=== PATIENT | male | born 1960 | race Caucasian/White ===

== ENCOUNTER 2017-11-22 13:04 | Inpatient (IN) | payer SELFPAY ==
--- NOTE | 2017-11-22 14:35 | PDOC ---
Attending Attestation - Resident Resident Name: Nanda Kellyie - ED Attending Attestation I have performed the following: I have examined & evaluated the patient, The case was reviewed & discussed with the resident, I agree w/resident's findings & plan, Exceptions are as noted - HPI HPI: 11/22/17 14:34 57y M hx of gout, ran out of his colchicine presents with 7 days of joint pain. pt notes it started off asR knee pain, then it spread to the L knee, L foot, R pinky, R index finger. pt endorsed feeling fevers. He notes that he last had gouty attack months ago, formerly his sypmtoms improve with colchicine. Pt notes that he was referrred to rheum at [facility] but never followed up yet. pt denies any chest pain, shortness of brath, abdmoinal pain, n/v, dysuria, diarrhea. ran out of his meds 7 days ago and uanble to make an appointment with his doctor. GENERAL: The patient is awake, alert, and fully oriented, Nontoxic - in no acute distress. HEAD: Normocephalic, atraumatic. EYES: extraocular movements intact, sclera anicteric, conjunctiva clear. ENT: Normal voice, Moist mucous membranes. NECK: Normal range of motion, supple LUNGS: Breath sounds equal, clear to auscultation bilaterally. No wheezes, no rhonchi, no rales. HEART: tachycardic, no murmers/rubs/gallops ABDOMEN: Soft, nontender, normoactive bowel sounds. No guarding, no rebound. . No CVA tenderness EXTREMITIES: b/l knee swelling/erythmia, L foot erythema/tenderness to palpation , +mildly tender erythemadous mass, sausage digit on L pinky but able to have limited rom of digit, able to range her knees to approx 45 degrees without signifiicant tendenress NEUROLOGICAL: No facial assymetry, Normal speech, moving all 4 extremities spontaneously PSYCH: Normal mood, normal affect. SKIN: hot to touch exam inconsistent with septic joints ?gout vs rheutmatolic vs viral will ck labs septic orderset obtained anticipate admission for further mangaement - Physicial Exam PE: 11/23/17 14:48 see above - Medical Decision Making 11/22/17 16:27 pot nt noted febrile and tachy leukocyotisis of 19 sepsis orderset obtained will give pt vanc/zosyn due to erythema/swelling of LLE anticipate admissoi nfor further mangement
[2017-11-22] MEDS ORDERED: SODIUM CHLORIDE 1,000 ML IV ONE (14:37)
[2017-11-22] MEDS ORDERED: KETOROLAC TROMETHAMINE 30 MG/1 ML VIAL IVPUSH ONE (14:40)
[2017-11-22] MEDS ORDERED: KETOROLAC TROMETHAMINE 30 MG/1 ML VIAL ONE (14:49)
[2017-11-22 15:12] LABS: BASO % 0.4 % (0-2.0); EOS % 0.2 % (0-4.5); HEMATOCRIT 43.7 % (35.4-49); HEMOGLOBIN 14.4 GM/dL (11.7-16.9); MCH 29.3 pg (25.7-33.7); MCHC 32.9 g/dl (32.0-35.9); MEAN CELL VOLUME 88.9 fl (80-96); MEAN PLT VOLUME 7.6 fl (7.5-11.1); MONO % 7.7 % (3.8-10.2); NEUT % 87.7 % (42.8-82.8); PLATELET COUNT 344 K/MM3 (134-434); RBC 4.92 M/mm3 (4.00-5.60); RDW 15.6 % (11.9-15.9); WHITE BLOOD COUNT 19.3 K/mm3 (4.0-10.0)
[2017-11-22] MEDS ORDERED: ACETAMINOPHEN 1000 MG/100 ML VIAL (NON FORMULARY) IVPB ONE (16:07)
--- NOTE | 2017-11-22 16:13 | PDOC ---
History of Present Illness - General Chief Complaint: Pain, Acute Stated Complaint: GOUT/ BOTH FEET Time Seen by Provider: 11/22/17 13:47 - History of Present Illness Initial Comments: 11/25/17 02:30 57 year old man w/ history of gout who presents with multiple joint pain, swelling and redness for the past 7 days. The patient regularly takes colchicine but ran out 1 week ago. The pain and joints involved include the L knee, L foot, R pinky, R index finger. The patient states that he feels this may be a gout flare, however it feels much worse than his flares in the past. He admits to feeling feverish but denies chest pain, shortness of breath, abdominal pain, N/V, diarrhea or constipation. 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 Past History - Past Medical History Allergies/Adverse Reactions: Allergies Allergy/AdvReac Type Severity Reaction Status Date / Time No Known Allergies Allergy Verified 11/22/17 13:22 Home Medications: Ambulatory Orders Amlodipine Besylate 10 mg PO DAILY #30 tablet 11/24/17 Cane 1 each MC ASDIR #1 each 11/24/17 Colchicine 0.6 tab PO DAILY #30 tablet 11/24/17 Erythromycin 0.5% Eye Ointment [Erythromycin 0.5% Eye Ointment -] 1 applic OS DAILY #1 tube 11/24/17 Metformin HCl [Glucophage] 1,000 mg PO DAILY #30 tablet 11/24/17 Prednisone See Taper PO DAILY #12 tablet 11/24/17 COPD: No Diabetes: Yes HTN: Yes Other medical history: gout - Suicide/Smoking/Psychosocial Hx Smoking History: Never smoked Hx Alcohol Use: No Drug/Substance Use Hx: No Review of Systems - Review of Systems Able to Perform ROS?: Yes Is the patient limited Uzbek proficient: No Constitutional: Yes: Fever HEENTM: No: Blurred Vision, Tinnitus Respiratory: No: Cough, Orthopnea, Shortness of Breath Cardiac (ROS): No: Chest Pain, Palpitations, Chest Tightness ABD/GI: No: Constipated, Diarrhea, Nausea, Vomiting : No: Burning, Dysuria Musculoskeletal: Yes: See HPI, Gout, Joint Pain, Joint Swelling, Joint Stiffness. No: Back Pain, Muscle Pain, Muscle Weakness Integumentary: No: Pruritus Neurological: No: Headache, Numbness, Paresthesia, Tingling *Physical Exam - Vital Signs Last Vital Signs Temp Pulse Resp BP Pulse Ox 97.7 F 132 H 18 116/72 99 11/22/17 13:19 11/22/17 15:22 11/22/17 15:22 11/22/17 13:19 11/22/17 13:19 - Physical Exam Comments: 11/26/17 07:20 GENERAL: Awake, alert, and fully oriented, NAD HEAD: Normocephalic, atraumatic. EYES: extraocular movements intact, sclera anicteric, conjunctiva clear. ENT: Normal voice, Moist mucous membranes. NECK: Normal range of motion, supple LUNGS: Breath sounds equal, clear to auscultation bilaterally. No wheezes, no rhonchi, no rales. HEART: tachycardic, no murmers/rubs/gallops ABDOMEN: Soft, nontender, normoactive bowel sounds. No guarding, no rebound. . No CVA tenderness EXTREMITIES: bilateral knee swellling and erythema, able to range knees approx 45 degrees, L pinky tenderness, swelling, limited ROM, NEUROLOGICAL: No facial asymmetry, Normal speech, moving all 4 extremities spontaneously PSYCH: Normal mood, normal affect. SKIN: hot to touch ED Treatment Course - LABORATORY CBC & Chemistry Diagram: 11/24/17 06:00 11/24/17 06:00 - ADDITIONAL ORDERS Additional order review: Laboratory Results 11/22/17 15:00 Sodium Cancelled Potassium Cancelled Chloride Cancelled Carbon Dioxide Cancelled Anion Gap Cancelled BUN Cancelled Creatinine Cancelled Creat Clearance w eGFR Cancelled Random Glucose Cancelled Uric Acid Cancelled Calcium Cancelled Total Bilirubin Cancelled AST Cancelled ALT Cancelled Alkaline Phosphatase Cancelled Total Protein Cancelled Albumin Cancelled 11/22/17 15:00 RBC 4.92 MCV 88.9 MCHC 32.9 RDW 15.6 MPV 7.6 Neutrophils % 87.7 H Lymphocytes % 4.0 L Monocytes % 7.7 Eosinophils % 0.2 Basophils % 0.4 - RADIOLOGY Radiology Studies Ordered: Category Date Time Status CHEST X-RAY PORTABLE* [RAD] Stat Radiology 11/22/17 16:06 Ordered - Medications Given in the ED: ED Medications Discontinued Medications Generic Name Dose Route Start Last Admin Trade Name Freq PRN Reason Stop Dose Admin Sodium Chloride 1,000 mls @ 1,000 mls/hr 11/22/17 14:37 11/22/17 15:07 Normal Saline - IV 11/22/17 15:36 1,000 mls/hr .Q1H ONE Administration Ketorolac Tromethamine 30 mg 11/22/17 14:40 11/22/17 15:07 Toradol Injection - IVPUSH 11/22/17 14:41 30 mg ONCE ONE Administration Medical Decision Making - Medical Decision Making 57 year old man w/ history of gout who presents with multiple joint pain, swelling and redness for the past 7 days after stopping colchicine for 1 week. The patient's exam and history or concerning for gout flare vs viral illness vs rheumatologic etiology vs septic joint. Unlikely to be septic joint as multiple joints are involved. We will evaluate with rheum labs, septic order set and anticipate admission for further workup and management. 11/22/17 16:12 Rectal Temp = 102F. Sepsis workup started Patient admitted to medicine for further workup. *DC/Admit/Observation/Transfer Diagnosis at time of Disposition: Leukocytosis, Elevated troponin, Gout, joint - Discharge Dispostion Disposition: HOME Condition at time of disposition: Improved - Prescriptions - Referrals - Patient Instructions - Post Discharge Activity
[2017-11-22] MEDS ORDERED: VANCOMYCIN 1,000 MG in DEXTROSE 5%-WATER - 250 ML IVPB ONE (16:24)
[2017-11-22] MEDS ORDERED: PIPERACILLIN/TAZOB 4.5 GM 4.5 GM in DEXTROSE 5%-WATER 100 ML IVPB ONE (16:24)
[2017-11-22 16:34] LABS: ALBUMIN 2.7 g/dl (3.4-5.0); ALK PHOS 105 U/L (45-117); ANION GAP 10 (8-16); BLOOD UREA NITROGEN 24 mg/dL (7-18); CALCIUM 8.2 mg/dL (8.5-10.1); CHLORIDE 103 mmol/L (98-107); CO2 25 mmol/L (21-32); CREATININE 1.3 mg/dL (0.7-1.3); GLUCOSE,RANDOM 109 mg/dL (74-106); POTASSIUM 4.1 mmol/L (3.5-5.1); SGOT/AST 13 U/L (15-37); SGPT/ALT 30 U/L (12-78); SODIUM 138 mmol/L (136-145); TOT PROT 6.2 g/dl (6.4-8.2)
[2017-11-22] MEDS ORDERED: PIPERACILLIN/TAZOB 4.5 GM 4.5 GM/100 ML BAG IVPB ONE (16:47)
[2017-11-22] MEDS ORDERED: ACETAMINOPHEN INJECTION 100 ML IVPB ONE (16:47)
[2017-11-22] MEDS ORDERED: VANCOMYCIN 1 GRAM (PRE-DOCKED) 1,000 MG/250 ML BAG IVPB ONE (16:47)
[2017-11-22 17:39] LABS: INR 1.29 (0.82-1.09); PROTHROMBIN TIME (PATIENT) 14.6 SEC (9.7-13.0)
[2017-11-22] MEDS ORDERED: ASPIRIN 81 MG CHEWABLE TABLETS PO ONE (18:06)
[2017-11-22 18:07] LABS: VENOUS PC02 35.1 mmHg (38-52); VENOUS PH 7.44 (7.32-7.42); VENOUS PO2 73.2 mmHg (28-48)
[2017-11-22] MEDS ORDERED: SODIUM CHLORIDE 1,000 ML IV SCH (18:15)
[2017-11-22 18:17] LABS: URINE APPEARANCE CLEAR; URINE BILIRUBIN NEGATIVE (<2.0 mg/dL); URINE COLOR AMBER; URINE GLUCOSE (UA) NEGATIVE (NEGATIVE); URINE KETONE TRACE (NEGATIVE); URINE LEUK ESTERASE NEGATIVE (NEGATIVE); URINE NITRITE NEGATIVE (NEGATIVE); URINE UROBILINOGEN 4.0 E.U/dl mg/dL (0.2-1.0)
[2017-11-22 18:28] LABS: URINE PROTEIN 1+ (NEGATIVE)
[2017-11-22] MEDS ORDERED: ASPIRIN 81 MG CHEWABLE TABLETS ONE (18:56)
--- NOTE | 2017-11-22 19:04 | PDOC ---
*Physical Exam - Vital Signs Last Vital Signs Temp Pulse Resp BP Pulse Ox 102.2 F H 132 H 18 116/72 99 11/22/17 15:55 11/22/17 15:22 11/22/17 15:22 11/22/17 13:19 11/22/17 13:19 ED Treatment Course - LABORATORY CBC & Chemistry Diagram: 11/22/17 15:00 11/22/17 15:49 - ADDITIONAL ORDERS Additional order review: Laboratory Results 11/22/17 11/22/17 11/22/17 17:14 17:14 17:11 PT with INR 14.60 H INR 1.29 H VBG pH POC VBG pCO2 POC VBG pO2 Mixed VBG HCO3 Sodium Potassium Chloride Carbon Dioxide Anion Gap BUN Creatinine Creat Clearance w eGFR Random Glucose Lactic Acid 1.3 Uric Acid Calcium Total Bilirubin AST ALT Alkaline Phosphatase Troponin I 0.09 H Total Protein Albumin Urine Color Urine Appearance Urine pH Ur Specific [place] Urine Protein Urine Glucose (UA) Urine Ketones Urine Blood Urine Nitrite Urine Bilirubin Urine Urobilinogen Ur Leukocyte Esterase 11/22/17 11/22/17 11/22/17 17:11 17:11 15:58 PT with INR INR VBG pH 7.44 H POC VBG pCO2 35.1 L POC VBG pO2 73.2 H Mixed VBG HCO3 23.2 Sodium Potassium Chloride Carbon Dioxide Anion Gap BUN Creatinine Creat Clearance w eGFR Random Glucose Lactic Acid Uric Acid 9.6 H Calcium Total Bilirubin AST ALT Alkaline Phosphatase Troponin I Total Protein Albumin Urine Color Carol Urine Appearance Clear Urine pH 5.0 Ur Specific [place] 1.020 Urine Protein 1+ H Urine Glucose (UA) Negative Urine Ketones Trace H Urine Blood 1+ H Urine Nitrite Negative Urine Bilirubin Negative Urine Urobilinogen 4.0 e.u/dl Ur Leukocyte Esterase Negative 11/22/17 11/22/17 15:49 15:00 PT with INR INR VBG pH POC VBG pCO2 POC VBG pO2 Mixed VBG HCO3 Sodium 138 Cancelled Potassium 4.1 Cancelled Chloride 103 Cancelled Carbon Dioxide 25 Cancelled Anion Gap 10 Cancelled BUN 24 H Cancelled Creatinine 1.3 Cancelled Creat Clearance w eGFR 57.31 Cancelled Random Glucose 109 H Cancelled Lactic Acid Uric Acid Cancelled Calcium 8.2 L Cancelled Total Bilirubin 1.0 Cancelled AST 13 L Cancelled ALT 30 Cancelled Alkaline Phosphatase 105 Cancelled Troponin I Total Protein 6.2 L Cancelled Albumin 2.7 L Cancelled Urine Color Urine Appearance Urine pH Ur Specific [place] Urine Protein Urine Glucose (UA) Urine Ketones Urine Blood Urine Nitrite Urine Bilirubin Urine Urobilinogen Ur Leukocyte Esterase 11/22/17 15:00 RBC 4.92 MCV 88.9 MCHC 32.9 RDW 15.6 MPV 7.6 Neutrophils % 87.7 H Lymphocytes % 4.0 L Monocytes % 7.7 Eosinophils % 0.2 Basophils % 0.4 - Medications Given in the ED: ED Medications Discontinued Medications Generic Name Dose Route Start Last Admin Trade Name Rosy PRN Reason Stop Dose Admin Acetaminophen 1,000 mg 11/22/17 16:07 11/22/17 17:00 Ofirmev Injection - IVPB 11/22/17 16:08 1,000 mg ONCE ONE Administration Sodium Chloride 1,000 mls @ 1,000 mls/hr 11/22/17 14:37 11/22/17 15:07 Normal Saline - IV 11/22/17 15:36 1,000 mls/hr .Q1H ONE Administration Vancomycin HCl 1,000 mg/ 250 mls @ 166.667 mls/hr 11/22/17 16:24 11/22/17 18: 00 Dextrose IVPB 11/22/17 17:53 166.667 mls/hr ONCE ONE Administration Protocol Piperacillin Sod/Tazobactam 100 mls @ 200 mls/hr 11/22/17 16:24 11/22/17 17: 20 Sod 4.5 gm/ Dextrose IVPB 11/22/17 16:53 200 mls/hr ONCE ONE Administration Protocol Ketorolac Tromethamine 30 mg 11/22/17 14:40 11/22/17 15:07 Toradol Injection - IVPUSH 11/22/17 14:41 30 mg ONCE ONE Administration *DC/Admit/Observation/Transfer Diagnosis at time of Disposition: Leukocytosis, Elevated troponin, Gout, joint - Discharge Dispostion Decision to Admit order: Yes - Referrals Referrals: Avinash Calhoun [Primary Care Provider] - - Patient Instructions - Post Discharge Activity
[2017-11-22 19:09] LABS: URINE MUCUS RARE
--- NOTE | 2017-11-22 20:16 | PN ---
Teaching Attending Note Name of Resident: Narendra Gonzalez ATTENDING PHYSICIAN STATEMENT I saw and evaluated the patient. I reviewed the resident's note and discussed the case with the resident. I agree with the resident's findings and plan as documented. SUBJECTIVE: 57 y/o M presenting for joint pain in feet, knees, elbows and hands , pmh significant for gout. PMH HTN, DM2 and hypercholesterol. Denies any fever , chills or recent sick contact OBJECTIVE: Gen: Mild distress, A&Ox3 HEENT: NC, PERRLA, EOMI, injected conjunctiva with purulent secretions, MMM CVS: Tachycardia LUNG: CTA ABD: Soft, NT, BS+ no guarding Ext: elbow L>R tophi, b/l hand swelling with erythema and tophi and b/l knee swelling right >left and left foot swollen and erythematous. right neuro: CN2-12 intact. CBCD WBC 19.3 K/mm3 (4.0-10.0) H 11/22/17 15:00 RBC 4.92 M/mm3 (4.00-5.60) 11/22/17 15:00 Hgb 14.4 GM/dL (11.7-16.9) 11/22/17 15:00 Hct 43.7 % (35.4-49) 11/22/17 15:00 MCV 88.9 fl (80-96) 11/22/17 15:00 MCHC 32.9 g/dl (32.0-35.9) 11/22/17 15:00 RDW 15.6 % (11.9-15.9) 11/22/17 15:00 Plt Count 344 K/MM3 (134-434) 11/22/17 15:00 MPV 7.6 fl (7.5-11.1) 11/22/17 15:00 CMP Sodium 138 mmol/L (136-145) 11/22/17 15:49 Potassium 4.1 mmol/L (3.5-5.1) 11/22/17 15:49 Chloride 103 mmol/L (98-107) 11/22/17 15:49 Carbon Dioxide 25 mmol/L (21-32) 11/22/17 15:49 Anion Gap 10 (8-16) 11/22/17 15:49 BUN 24 mg/dL (7-18) H 11/22/17 15:49 Creatinine 1.3 mg/dL (0.7-1.3) 11/22/17 15:49 Creat Clearance w eGFR 57.31 (>60) 11/22/17 15:49 Random Glucose 109 mg/dL (74-106) H 11/22/17 15:49 Calcium 8.2 mg/dL (8.5-10.1) L 11/22/17 15:49 Total Bilirubin 1.0 mg/dL (0.2-1.0) 11/22/17 15:49 AST 13 U/L (15-37) L 11/22/17 15:49 ALT 30 U/L (12-78) 11/22/17 15:49 Alkaline Phosphatase 105 U/L (45-117) 11/22/17 15:49 Total Protein 6.2 g/dl (6.4-8.2) L 11/22/17 15:49 Albumin 2.7 g/dl (3.4-5.0) L 11/22/17 15:49 CARDIAC ENZYMES Troponin I 0.09 ng/ml (0.00-0.05) H 11/22/17 17:14 ASSESSMENT AND PLAN: SIRS criteria met, sepsis etiology unknown r/o septic joint vs bacterial conjunctivitis, gout flare. IVF Vanc and Zosyn Follow bld cx, G&C repeat CBC and BMP in AM ortho consult for joint aspiration Conjunctivitis- bacterial vs viral Erythromycin Gout flare uric acid level Naproxen continue colchine xray b/l knees DVT prophylaxis
[2017-11-22 20:45] LABS: ACTIVATED PTT 18.6 SECONDS (25.2-36.5)
[2017-11-22] MEDS: SODIUM CHLORIDE 1,000 ML IV SCH (23:22)
[2017-11-22] MEDS: HEPARIN NA (PORCINE) 5,000 UNITS/ML 1ML VIAL SQ SCH (23:45)
[2017-11-23] MEDS ORDERED: HEPARIN NA (PORCINE) 5,000 UNITS/ML 1ML VIAL ONE (00:13)
[2017-11-23] MEDS ORDERED: ACETAMINOPHEN 325 MG TABLET (FP) PO PRN (00:57)
[2017-11-23] MEDS ORDERED: COLCHICINE 0.6 MG TABLET (FP) PO ONE (01:00)
[2017-11-23] MEDS ORDERED: NAPROXEN 500 MG TABLET (FP) PO ONE (01:01)
[2017-11-23 01:12] VITALS: BMI 38.0
[2017-11-23] MEDS: ACETAMINOPHEN 325 MG TABLET (FP) PO PRN ×3 (01:14→22:07)
[2017-11-23] MEDS: ERYTHROMYCIN 0.5% OPHTHALMIC OINTMENT 3.5 GM TUBE OU SCH ×5 (01:17→22:07)
--- NOTE | 2017-11-23 01:48 | HP ---
CHIEF COMPLAINT: joint pains PCP: HISTORY OF PRESENT ILLNESS: 57 y/o male with PMH gout, HTN, HLD, DM, presents for pain in his b/l feet, b/l knees, and right pinky finger. States pain began one week ago when he ran out of colchicine. He was diagnosed with gout 1-1.5 months ago incidentally at his PCP office. since diagnosis he admits compliance with diet low in meat and alcohol. Today admits sharp pain, erythema and swelling of his feet b/l which makes it difficult for him to bear weight, difficulty flexing his right knee which impairs his walking, and pain bending his pinky fingers b/l radiating throughout his hands. Admits subjective fevers, chills, and irritated right eye. Denies chest pain, palpitations, shortness of breath, nausea, vomiting, diarrhea, changes in vision, blurry vision. Home medications: Indomethicin 50mg PO QD, Colchicine 0.6mg PO QD ER course was notable for: (1) Ofirimev, vancomycin, zosyn, toradol, aspirin, IVNS, (2) blood cx, urine cx (3) Recent Travel: PAST MEDICAL HISTORY: gout, HTN, HLD, DM PAST SURGICAL HISTORY: left knee meniscal repair 10 years ago, endoscopy 15 years ago, Social History: Smoking: denies Alcohol: used to drink 1 bottle of tequilla at a [employer] party once a month, but had last drink 6 years ago Drugs: denies Family History: Allergies No Known Allergies Allergy (Verified 11/22/17 13:22) HOME MEDICATIONS: Home Medications Medication Instructions Recorded Amlodipine Besylate 10 mg PO DAILY 11/22/17 Aspirin [Aspirin EC] 81 mg PO DAILY 11/22/17 Metformin HCl [Glucophage] 1,000 mg PO DAILY 11/22/17 Metoprolol Tartrate 50 mg PO BID 11/22/17 REVIEW OF SYSTEMS As per HPI PHYSICAL EXAMINATION Vital Signs - 24 hr 11/22/17 11/22/17 11/22/17 13:19 15:22 15:55 Temperature 97.7 F 102.2 F H Pulse Rate 134 H Pulse Rate [ 132 H Left Radial] Respiratory 16 18 Rate Blood Pressure 116/72 Blood Pressure [Left Arm] O2 Sat by Pulse 99 Oximetry (%) 11/22/17 11/22/17 11/22/17 17:38 19:02 23:32 Temperature 99.8 F H 99.5 F Pulse Rate Pulse Rate [ 111 H 105 H 110 H Left Radial] Respiratory 17 15 22 Rate Blood Pressure Blood Pressure 108/71 124/78 138/90 [Left Arm] O2 Sat by Pulse 98 95 96 Oximetry (%) 11/23/17 00:30 Temperature 99.9 F H Pulse Rate 128 H Pulse Rate [ Left Radial] Respiratory 20 Rate Blood Pressure 139/76 Blood Pressure [Left Arm] O2 Sat by Pulse Oximetry (%) GENERAL: Awake, alert, and fully oriented, in no mild distress. HEAD: Normal with no signs of trauma. EYES: Right eye conjunctival injection, with mucoid discharge. Pupils equal, round and reactive to light, extraocular movements intact. EARS, NOSE, THROAT: Oropharynx clear without exudates. Moist mucous membranes. NECK: Normal range of motion, supple without lymphadenopathy, JVD, or masses. LUNGS: Breath sounds equal, clear to auscultation bilaterally. No wheezes, and no crackles. No accessory muscle use. HEART: Regular rate and rhythm, normal S1 and S2 without murmur, rub or gallop. ABDOMEN: Soft, nontender, not distended, normoactive bowel sounds, no guarding, no rebound. MUSCULOSKELETAL: Difficulty flexing B/L pinky fingers. UPPER EXTREMITIES: 2+ radial pulses, warm, well-perfused. Tophus of left elbow, and tophaceous swelling of right pinky finger. LOWER EXTREMITIES: 2+ DP pulses, warm, b/l feet edematous and erythematous left > right. Right knee swollen and erythematous > left knee. Difficulty flexing left knee past 30 degrees. NEUROLOGICAL: Cranial nerves II-XII intact. Normal speech. PSYCHIATRIC: Cooperative. Appropriate mood and affect. Laboratory Results - last 24 hr 11/22/17 11/22/17 11/22/17 15:00 15:00 15:30 WBC 19.3 H RBC 4.92 Hgb 14.4 Hct 43.7 MCV 88.9 MCH 29.3 MCHC 32.9 RDW 15.6 Plt Count 344 MPV 7.6 Absolute Neuts (auto) 17.0 Neutrophils % 87.7 H Lymphocytes % 4.0 L Monocytes % 7.7 Eosinophils % 0.2 Basophils % 0.4 Nucleated RBC % 0 ESR 25 H PT with INR INR PTT (Actin FS) VBG pH POC VBG pCO2 POC VBG pO2 Mixed VBG HCO3 Sodium Cancelled Potassium Cancelled Chloride Cancelled Carbon Dioxide Cancelled Anion Gap Cancelled BUN Cancelled Creatinine Cancelled Creat Clearance w eGFR Cancelled POC Glucometer Random Glucose Cancelled Lactic Acid Uric Acid Cancelled Calcium Cancelled Total Bilirubin Cancelled AST Cancelled ALT Cancelled Alkaline Phosphatase Cancelled Troponin I C-Reactive Protein Total Protein Cancelled Albumin Cancelled Urine Color Urine Appearance Urine pH Ur Specific [place] Urine Protein Urine Glucose (UA) Urine Ketones Urine Blood Urine Nitrite Urine Bilirubin Urine Urobilinogen Ur Leukocyte Esterase Urine WBC (Auto) Urine RBC (Auto) Urine Mucus 11/22/17 11/22/17 11/22/17 15:49 15:58 17:11 WBC RBC Hgb Hct MCV MCH MCHC RDW Plt Count MPV Absolute Neuts (auto) Neutrophils % Lymphocytes % Monocytes % Eosinophils % Basophils % Nucleated RBC % ESR PT with INR INR PTT (Actin FS) VBG pH POC VBG pCO2 POC VBG pO2 Mixed VBG HCO3 Sodium 138 Potassium 4.1 Chloride 103 Carbon Dioxide 25 Anion Gap 10 BUN 24 H Creatinine 1.3 Creat Clearance w eGFR 57.31 POC Glucometer Random Glucose 109 H Lactic Acid Uric Acid 9.6 H Calcium 8.2 L Total Bilirubin 1.0 AST 13 L ALT 30 Alkaline Phosphatase 105 Troponin I C-Reactive Protein Total Protein 6.2 L Albumin 2.7 L Urine Color Carol Urine Appearance Clear Urine pH 5.0 Ur Specific [place] 1.020 Urine Protein 1+ H Urine Glucose (UA) Negative Urine Ketones Trace H Urine Blood 1+ H Urine Nitrite Negative Urine Bilirubin Negative Urine Urobilinogen 4.0 e.u/dl Ur Leukocyte Esterase Negative Urine WBC (Auto) 2 Urine RBC (Auto) 3 Urine Mucus Rare 11/22/17 11/22/17 11/22/17 17:11 17:11 17:14 WBC RBC Hgb Hct MCV MCH MCHC RDW Plt Count MPV Absolute Neuts (auto) Neutrophils % Lymphocytes % Monocytes % Eosinophils % Basophils % Nucleated RBC % ESR PT with INR 14.60 H INR 1.29 H PTT (Actin FS) 18.6 L* VBG pH 7.44 H POC VBG pCO2 35.1 L POC VBG pO2 73.2 H Mixed VBG HCO3 23.2 Sodium Potassium Chloride Carbon Dioxide Anion Gap BUN Creatinine Creat Clearance w eGFR POC Glucometer Random Glucose Lactic Acid 1.3 Uric Acid Calcium Total Bilirubin AST ALT Alkaline Phosphatase Troponin I C-Reactive Protein Total Protein Albumin Urine Color Urine Appearance Urine pH Ur Specific [place] Urine Protein Urine Glucose (UA) Urine Ketones Urine Blood Urine Nitrite Urine Bilirubin Urine Urobilinogen Ur Leukocyte Esterase Urine WBC (Auto) Urine RBC (Auto) Urine Mucus 11/22/17 11/22/17 11/22/17 17:14 19:51 19:51 WBC RBC Hgb Hct MCV MCH MCHC RDW Plt Count MPV Absolute Neuts (auto) Neutrophils % Lymphocytes % Monocytes % Eosinophils % Basophils % Nucleated RBC % ESR PT with INR INR PTT (Actin FS) VBG pH POC VBG pCO2 POC VBG pO2 Mixed VBG HCO3 Sodium Potassium Chloride Carbon Dioxide Anion Gap BUN Creatinine Creat Clearance w eGFR POC Glucometer Random Glucose Lactic Acid Uric Acid Calcium Total Bilirubin AST ALT Alkaline Phosphatase Troponin I 0.09 H 0.09 H C-Reactive Protein 38.2 H Total Protein Albumin Urine Color Urine Appearance Urine pH Ur Specific [place] Urine Protein Urine Glucose (UA) Urine Ketones Urine Blood Urine Nitrite Urine Bilirubin Urine Urobilinogen Ur Leukocyte Esterase Urine WBC (Auto) Urine RBC (Auto) Urine Mucus 11/23/17 11/23/17 00:15 00:50 WBC RBC Hgb Hct MCV MCH MCHC RDW Plt Count MPV Absolute Neuts (auto) Neutrophils % Lymphocytes % Monocytes % Eosinophils % Basophils % Nucleated RBC % ESR PT with INR INR PTT (Actin FS) VBG pH POC VBG pCO2 POC VBG pO2 Mixed VBG HCO3 Sodium Potassium Chloride Carbon Dioxide Anion Gap BUN Creatinine Creat Clearance w eGFR POC Glucometer 98 Random Glucose Lactic Acid Uric Acid Calcium Total Bilirubin AST ALT Alkaline Phosphatase Troponin I 0.11 H C-Reactive Protein Total Protein Albumin Urine Color Urine Appearance Urine pH Ur Specific [place] Urine Protein Urine Glucose (UA) Urine Ketones Urine Blood Urine Nitrite Urine Bilirubin Urine Urobilinogen Ur Leukocyte Esterase Urine WBC (Auto) Urine RBC (Auto) Urine Mucus ASSESSMENT/PLAN: 57 y/o male with PMH gout, HTN, HLD, DM, presents for pain in his b/l feet, b/l knees, and right pinky finger. -SIRS secondary to unclear cause of infection -WBC 19.3, Temp 102, HR 105, Respirations 15 -CXR showed no infiltrates -will F/U blood, urine cultures -Vancomycin, Zosyn given in ED -IV NS 125mml/ hr Gout flare -Reinstate Colchicine -Tylenol started d/t elevated Cr -Consider reinstating indomethicin -f/u gonorrhea, chlamydia cultures for possible infectious source DM -Hold oral medication -Insulin sliding scale -BGM HTN -Reinstate Amlodipine, Metoprolol FEN -IV NS 125 ml/ hr -no electrolyte abnormalities at this time -Diabetic diet Prophylaxis -Heparin 5000u subq tid Advance directives: Full code Disposition: admit to medical surgical floor Case discussed with publication distributor attending. Visit type - Emergency Visit Emergency Visit: Yes ED Registration Date: 11/22/17 Care time: The patient presented to the Emergency Department on the above date and was hospitalized for further evaluation of their emergent condition. - New Patient This patient is new to me today: Yes Date on this admission: 11/23/17 - Critical Care Critical Care patient: No Hospitalist Screening - Colonoscopy Questionnaire Colonoscopy Questionnaire: Colonoscopy Questionnaire - Patient: 50 - 75 years old and never had a screening colonoscopy: Unknown History of colon or rectal polyps, or CA: Unknown History of IBD, Crohn's disease or UC: Unknown History of abdominal radiation therapy as a child: Unknown - Relative: 1 with colon or rectal CA, or polyps at age 60 or younger: Unknown Colon or rectal CA diagnosed at age 45 or younger: Unknown Multiple relatives with colon or rectal CA: Unknown - Outcome: Screening Result: Negative Screen
[2017-11-23] MEDS ORDERED: MORPHINE SULFATE 2 MG/ML VIAL IM ONE (02:14)
[2017-11-23 04:35] LABS: BASO % 0.2 % (0-2.0); EOS % 1.2 % (0-4.5); HEMATOCRIT 37.1 % (35.4-49); HEMOGLOBIN 12.3 GM/dL (11.7-16.9); LYMPH % 4.3 % (8-40); MCH 29.3 pg (25.7-33.7); MEAN PLT VOLUME 7.2 fl (7.5-11.1); MONO % 8.7 % (3.8-10.2); NEUT % 85.6 % (42.8-82.8); PLATELET COUNT 262 K/MM3 (134-434); RBC 4.18 M/mm3 (4.00-5.60); RDW 14.9 % (11.9-15.9); WHITE BLOOD COUNT 14.6 K/mm3 (4.0-10.0)
[2017-11-23 05:03] LABS: ALBUMIN 2.5 g/dl (3.4-5.0); ANION GAP 9 (8-16); BLOOD UREA NITROGEN 27 mg/dL (7-18); CHLORIDE 102 mmol/L (98-107); CO2 27 mmol/L (21-32); CREATININE 1.4 mg/dL (0.7-1.3); GLUCOSE,RANDOM 103 mg/dL (74-106); POTASSIUM 3.9 mmol/L (3.5-5.1); SGOT/AST 21 U/L (15-37); SGPT/ALT 30 U/L (12-78); SODIUM 138 mmol/L (136-145)
[2017-11-23 05:05] LABS: ALK PHOS 101 U/L (45-117); BILIRUBIN,TOTAL 0.8 mg/dL (0.2-1.0)
[2017-11-23] MEDS: HEPARIN NA (PORCINE) 5,000 UNITS/ML 1ML VIAL SQ SCH ×3 (05:38→22:07)
[2017-11-23] MEDS: INSULIN SLIDING SCALE (NOVOLOG) 1 VIAL SQ SCH ×4 (06:05→22:13)
[2017-11-23 06:54] LABS: URIC ACID 9.2 mg/dL (2.6-7.2)
[2017-11-23] MEDS ORDERED: morphine CARPU-JECT 2 MG/1 ML DISP.SYRIN IVPUSH ONE (08:09)
--- NOTE | 2017-11-23 08:11 | PN ---
Physical Exam: SUBJECTIVE: Patient is a 57 y/o male with a past medical history of gout, HTN, HLD, DM who is admitted for gout. Patient reports he still has pain in his affected joints, the worst one is his right knee. His last episode was 3 months ago and hasn't taken his medication in two weeks. He denies eating red meat or drinking alcohol. OBJECTIVE: Vital Signs Period Temp Pulse Resp BP Sys/Gomez Pulse Ox Last 24 Hr 97.7 F-102.2 F 101-134 15-22 108-139/71-90 95-99 GENERAL: The patient is awake, alert, and fully oriented, in no acute distress. EYES: PERRL, extraocular movements intact, L eye sclera injected LUNGS: Breath sounds equal, clear to auscultation bilaterally HEART: Regular rate and rhythm, ABDOMEN: Soft, nontender, nondistended, EXTREMITIES: R hand pinky and first finger, Left elbow, right knee, bilateral feet, tender to palpation, swollen, and erythematous, no pitting edema, DP 2+, ROM intact PSYCH: Normal mood, normal affect. Laboratory Results - last 24 hr 11/22/17 11/22/17 11/22/17 15:00 15:00 15:30 WBC 19.3 H RBC 4.92 Hgb 14.4 Hct 43.7 MCV 88.9 MCH 29.3 MCHC 32.9 RDW 15.6 Plt Count 344 MPV 7.6 Absolute Neuts (auto) 17.0 Neutrophils % 87.7 H Lymphocytes % 4.0 L Monocytes % 7.7 Eosinophils % 0.2 Basophils % 0.4 Nucleated RBC % 0 ESR 25 H PT with INR INR PTT (Actin FS) VBG pH POC VBG pCO2 POC VBG pO2 Mixed VBG HCO3 Sodium Cancelled Potassium Cancelled Chloride Cancelled Carbon Dioxide Cancelled Anion Gap Cancelled BUN Cancelled Creatinine Cancelled Creat Clearance w eGFR Cancelled POC Glucometer Random Glucose Cancelled Lactic Acid Uric Acid Cancelled Calcium Cancelled Total Bilirubin Cancelled AST Cancelled ALT Cancelled Alkaline Phosphatase Cancelled Troponin I C-Reactive Protein Total Protein Cancelled Albumin Cancelled Urine Color Urine Appearance Urine pH Ur Specific [place] Urine Protein Urine Glucose (UA) Urine Ketones Urine Blood Urine Nitrite Urine Bilirubin Urine Urobilinogen Ur Leukocyte Esterase Urine WBC (Auto) Urine RBC (Auto) Urine Mucus 07/11/22/17 11/22/17 15:49 15:58 17:11 WBC RBC Hgb Hct MCV MCH MCHC RDW Plt Count MPV Absolute Neuts (auto) Neutrophils % Lymphocytes % Monocytes % Eosinophils % Basophils % Nucleated RBC % ESR PT with INR INR PTT (Actin FS) VBG pH POC VBG pCO2 POC VBG pO2 Mixed VBG HCO3 Sodium 138 Potassium 4.1 Chloride 103 Carbon Dioxide 25 Anion Gap 10 BUN 24 H Creatinine 1.3 Creat Clearance w eGFR 57.31 POC Glucometer Random Glucose 109 H Lactic Acid Uric Acid 9.6 H Calcium 8.2 L Total Bilirubin 1.0 AST 13 L ALT 30 Alkaline Phosphatase 105 Troponin I C-Reactive Protein Total Protein 6.2 L Albumin 2.7 L Urine Color Carol Urine Appearance Clear Urine pH 5.0 Ur Specific [place] 1.020 Urine Protein 1+ H Urine Glucose (UA) Negative Urine Ketones Trace H Urine Blood 1+ H Urine Nitrite Negative Urine Bilirubin Negative Urine Urobilinogen 4.0 e.u/dl Ur Leukocyte Esterase Negative Urine WBC (Auto) 2 Urine RBC (Auto) 3 Urine Mucus Rare 11/22/17 11/22/17 11/22/17 17:11 17:11 17:14 WBC RBC Hgb Hct MCV MCH MCHC RDW Plt Count MPV Absolute Neuts (auto) Neutrophils % Lymphocytes % Monocytes % Eosinophils % Basophils % Nucleated RBC % ESR PT with INR 14.60 H INR 1.29 H PTT (Actin FS) 18.6 L* VBG pH 7.44 H POC VBG pCO2 35.1 L POC VBG pO2 73.2 H Mixed VBG HCO3 23.2 Sodium Potassium Chloride Carbon Dioxide Anion Gap BUN Creatinine Creat Clearance w eGFR POC Glucometer Random Glucose Lactic Acid 1.3 Uric Acid Calcium Total Bilirubin AST ALT Alkaline Phosphatase Troponin I C-Reactive Protein Total Protein Albumin Urine Color Urine Appearance Urine pH Ur Specific [place] Urine Protein Urine Glucose (UA) Urine Ketones Urine Blood Urine Nitrite Urine Bilirubin Urine Urobilinogen Ur Leukocyte Esterase Urine WBC (Auto) Urine RBC (Auto) Urine Mucus 11/22/17 11/22/17 11/22/17 17:14 19:51 19:51 WBC RBC Hgb Hct MCV MCH MCHC RDW Plt Count MPV Absolute Neuts (auto) Neutrophils % Lymphocytes % Monocytes % Eosinophils % Basophils % Nucleated RBC % ESR PT with INR INR PTT (Actin FS) VBG pH POC VBG pCO2 POC VBG pO2 Mixed VBG HCO3 Sodium Potassium Chloride Carbon Dioxide Anion Gap BUN Creatinine Creat Clearance w eGFR POC Glucometer Random Glucose Lactic Acid Uric Acid Calcium Total Bilirubin AST ALT Alkaline Phosphatase Troponin I 0.09 H 0.09 H C-Reactive Protein 38.2 H Total Protein Albumin Urine Color Urine Appearance Urine pH Ur Specific [place] Urine Protein Urine Glucose (UA) Urine Ketones Urine Blood Urine Nitrite Urine Bilirubin Urine Urobilinogen Ur Leukocyte Esterase Urine WBC (Auto) Urine RBC (Auto) Urine Mucus 11/23/17 11/23/17 11/23/17 00:15 00:50 04:10 WBC 14.6 H RBC 4.18 Hgb 12.3 Hct 37.1 D MCV 89.0 MCH 29.3 MCHC 33.0 RDW 14.9 Plt Count 262 D MPV 7.2 L Absolute Neuts (auto) 12.5 Neutrophils % 85.6 H Lymphocytes % 4.3 L Monocytes % 8.7 Eosinophils % 1.2 D Basophils % 0.2 Nucleated RBC % 0 ESR PT with INR INR PTT (Actin FS) VBG pH POC VBG pCO2 POC VBG pO2 Mixed VBG HCO3 Sodium Potassium Chloride Carbon Dioxide Anion Gap BUN Creatinine Creat Clearance w eGFR POC Glucometer 98 Random Glucose Lactic Acid Uric Acid Calcium Total Bilirubin AST ALT Alkaline Phosphatase Troponin I 0.11 H C-Reactive Protein Total Protein Albumin Urine Color Urine Appearance Urine pH Ur Specific [place] Urine Protein Urine Glucose (UA) Urine Ketones Urine Blood Urine Nitrite Urine Bilirubin Urine Urobilinogen Ur Leukocyte Esterase Urine WBC (Auto) Urine RBC (Auto) Urine Mucus 11/23/17 11/23/17 11/23/17 04:10 05:36 05:45 WBC RBC Hgb Hct MCV MCH MCHC RDW Plt Count MPV Absolute Neuts (auto) Neutrophils % Lymphocytes % Monocytes % Eosinophils % Basophils % Nucleated RBC % ESR PT with INR INR PTT (Actin FS) VBG pH POC VBG pCO2 POC VBG pO2 Mixed VBG HCO3 Sodium 138 Potassium 3.9 Chloride 102 Carbon Dioxide 27 Anion Gap 9 BUN 27 H Creatinine 1.4 H Creat Clearance w eGFR 52.62 POC Glucometer 94 Random Glucose 103 Lactic Acid Uric Acid 9.2 H Calcium 8.0 L Total Bilirubin 0.8 AST 21 D ALT 30 Alkaline Phosphatase 101 Troponin I 0.12 H 0.11 H C-Reactive Protein Total Protein 6.0 L Albumin 2.5 L Urine Color Urine Appearance Urine pH Ur Specific [place] Urine Protein Urine Glucose (UA) Urine Ketones Urine Blood Urine Nitrite Urine Bilirubin Urine Urobilinogen Ur Leukocyte Esterase Urine WBC (Auto) Urine RBC (Auto) Urine Mucus Active Medications Generic Name Dose Route Start Last Admin Trade Name Freq PRN Reason Stop Dose Admin Acetaminophen 650 mg 11/23/17 01:02 11/23/17 01:14 Tylenol - PO 650 mg Q6H PRN Administration Fever Or Pain Amlodipine Besylate 10 mg 11/23/17 10:00 Norvasc - PO DAILY BLACK Erythromycin 1 applic 11/22/17 23:30 11/23/17 01:17 Erythromycin 0.5% Eye Ointment OU 1 applic DAILY BLACK Administration Heparin Sodium (Porcine) 5,000 unit 11/22/17 23:15 11/23/17 05:38 Heparin - SQ 5,000 unit TID BLACK Administration Sodium Chloride 1,000 mls @ 125 mls/hr 11/22/17 23:00 11/22/17 23:22 Normal Saline - IV 125 mls/hr ASDIR BLACK Administration Insulin Aspart 1 vial 11/23/17 07:00 11/23/17 06:05 Novolog Vial Sliding Scale - SQ Not Given ACHS [facility] Protocol Metoprolol Tartrate 50 mg 11/23/17 10:00 Lopressor - PO BID [facility] ASSESSMENT/PLAN: Patient is a 57 y/o male with a past medical history of gout, HTN, HLD, DM who is admitted for gout. #Gout - ED: cholchicine, morphine, Naproxen, Zosyn, Vancomycin, Toradol - colchicine .6 mg daily - steroids 40 mg daily - morphine 2mg once for pain, makes pt nauseous - tramadol 50 mg once for pain - f/u G/C lab - B/L knee xray: osteoarthitis involving the bilateral medial tibiofemoral join compartment, bilateral suprapatellar joint effusion - f/u ortho consult, Dr. Henderson #conjunctivitis L eye -erythromycin drops #HTN -amlodipine 10 mg daily -metoprolol 50 mg BID #DM -SS -hold metofmin #DVT ppx -heaprin TID FEN -NS @ 125 - diabetic diet Disposition: possibly tomorrow, monitor clinical status Visit type - Emergency Visit Emergency Visit: No - New Patient This patient is new to me today: Yes Date on this admission: 11/23/17 - Critical Care Critical Care patient: No
[2017-11-23] MEDS ORDERED: PT OWN MED DRAWER 7, Y5N ONE ×2 (09:21→17:03)
[2017-11-23] MEDS: amLODIPine BESYLATE 10 MG TABLET (FP) PO SCH (09:37)
[2017-11-23] MEDS: METOPROLOL TARTRATE 50 MG TABLET (FP) PO SCH ×2 (09:37→22:07)
[2017-11-23] MEDS: COLCHICINE 0.6 MG TABLET (FP) PO SCH (11:00)
--- NOTE | 2017-11-23 11:33 | EKG ---
Test Reason : Blood Pressure : / mmHG Vent. Rate : 107 BPM Atrial Rate : 107 BPM P-R Int : 146 ms QRS Dur : 092 ms QT Int : 340 ms P-R-T Axes : 047 -74 047 degrees QTc Int : 453 ms SINUS TACHYCARDIA LEFT AXIS DEVIATION CANNOT RULE OUT ANTERIOR INFARCT (CITED ON OR BEFORE 22-NOV-2017) ABNORMAL ECG WHEN COMPARED WITH ECG OF 22-NOV-2017 15:18, NO SIGNIFICANT CHANGE WAS FOUND Confirmed by ALEJANDRO COLON MD ([id number]) on 11/23/2017 11:33:40 AM Referred By: Confirmed By:ALEJANDRO COLON MD
--- NOTE | 2017-11-23 11:34 | EKG ---
Test Reason : Blood Pressure : / mmHG Vent. Rate : 122 BPM Atrial Rate : 122 BPM P-R Int : 140 ms QRS Dur : 088 ms QT Int : 312 ms P-R-T Axes : 043 -81 040 degrees QTc Int : 444 ms SINUS TACHYCARDIA LEFT AXIS DEVIATION POSSIBLE ANTERIOR INFARCT , AGE UNDETERMINED ABNORMAL ECG NO PREVIOUS ECGS AVAILABLE Confirmed by ALEJANDRO COLON MD ([id number]) on 11/23/2017 11:33:50 AM Referred By: Confirmed By:ALEJANDRO COLON MD
[2017-11-23] MEDS: predniSONE 20 MG TABLET (UD) PO SCH (12:48)
[2017-11-23] MEDS: SODIUM CHLORIDE 1,000 ML IV SCH ×2 (13:14→21:00)
--- NOTE | 2017-11-23 15:23 | PN ---
Teaching Attending Note Name of Resident: Shae Monzon ATTENDING PHYSICIAN STATEMENT I saw and evaluated the patient. I reviewed the resident's note and discussed the case with the resident. I agree with the resident's findings and plan as documented. SUBJECTIVE: No fever or chills . has pain in R knee, R elbow , hands, and feet OBJECTIVE: NAD , pleasant , and cooperative CV: RRR, No MRG Lungs: CTAb Ext: edema , erythema, and tenderness over ankles, feet and toes. limited range of motion of ankles . R knee with erythema , edema and suprapatellar effusion. limited range of motion in R knee. No effusion felt in L knee. R hand small joints involved. R little finger tophus . tenderness in L hands joints. L elbow big tophus . R elbow tenderness and limited range of motion ASSESSMENT AND PLAN: 57 y/o man with recent diagnosis of Gout 3 months ago, Dm , HTN, HLP, who presented with joint pain and swelling. 1- Joint pain and tenderness: likely due to polyarticular gout . HLOC as can't ambulate due to the severity of the joint involvement - can't give NSAIds due to renal fialure - start a course of steroids - cont colchicine , appropriate dosing 0.6 daily for his Cr clearance - despite leukocytosis , doubt septic joint . Monitor off Abx - ortho consult pending 2- elevated trop: No acute ischemic changes on EKG. stress as out pt 3- BERNA vs CKD: no previous labs . - try gentle hydration , if no change by tomorrow deshaun dc 4- DM: SSI 5- HTN . Norvac
[2017-11-23] MEDS ORDERED: morphine SULFATE 4 MG/ML VIAL IVPUSH PRN (15:45)
[2017-11-23] MEDS ORDERED: traMADol HCL 50 MG TABLET PO ONE (16:08)
--- NOTE | 2017-11-23 16:38 | PN ---
Progress Note (short form) - Note Progress Note: Pt seen and examined. He is a 57 year old male pt with multiple medical problems including severe gout, who presents with painful swelling of multiple joints including both knees, Left small finger, entire right hand. No recent h/ o trauma or infection. He states his right hand is the most painful, then the right knee. Labs UA = 9.2 WBC = decreased to 14.6 ESR = 25 Blood cx Pending AVSS PE Right knee has a moderate sized joint effusion. + mildly warm, not hot. + mildly tender. Decreased ROM bc of pain and swelling. Left knee not nearly as severe. Mildy swollen and nontender. No joint effusion. Left small finger swollen, warm, tender. Decreased ROM. Looks to be acute- on-chronic. Right hand is globally swollen. + moderately tender over the right thumb, and all fingers. Decreased ROM bc of pain, stiffness, swelling. Xrays Of both knees show mild OA. No acute lisa pathology. Imp Global severe gout. Rec Gout anti inflammatory medications. In addition, under sterile conditions, after informed consent was obtained , I aspirated 50cc of turbid, inflammatory fluid. Will send off for gram stain, cell count, uric acid, crystals,
[2017-11-23 18:53] LABS: SYNOVIAL FLUID SOURCE RIGHT KNEE
[2017-11-23 18:54] LABS: CRYSTALS,SYNOVIAL FLUID POSITIVE FOR MSU
[2017-11-23 19:29] LABS: SYNOVIAL FLUID NEUTROPHILS 100 %
[2017-11-23] MEDS ORDERED: INSULIN (NOVOLOG) ASPART 100 UNITS/ML 10ML VIAL ONE (22:13)
[2017-11-24 01:50] LABS: GLUCOSE,SYNOVIAL FLUID 5 mg/dL; TOTAL PROTEIN,SYNOVIAL FLUID 4 gm/dL
[2017-11-24] MEDS: SODIUM CHLORIDE 1,000 ML IV SCH ×2 (05:05→17:14)
[2017-11-24] MEDS: INSULIN SLIDING SCALE (NOVOLOG) 1 VIAL SQ SCH ×3 (06:06→16:58)
[2017-11-24] MEDS: ERYTHROMYCIN 0.5% OPHTHALMIC OINTMENT 3.5 GM TUBE OU SCH ×4 (06:09→17:14)
[2017-11-24] MEDS: HEPARIN NA (PORCINE) 5,000 UNITS/ML 1ML VIAL SQ SCH ×2 (06:09→13:16)
[2017-11-24] MEDS ORDERED: PT OWN MED DRAWER 7, Y5N ONE ×2 (06:11→08:39)
[2017-11-24 07:38] LABS: HEMATOCRIT 36.5 % (35.4-49); HEMOGLOBIN 12.2 GM/dL (11.7-16.9); MCH 29.9 pg (25.7-33.7); MCHC 33.3 g/dl (32.0-35.9); MEAN CELL VOLUME 89.6 fl (80-96); MEAN PLT VOLUME 7.8 fl (7.5-11.1); PLATELET COUNT 304 K/MM3 (134-434); RBC 4.08 M/mm3 (4.00-5.60); RDW 15.1 % (11.9-15.9); WHITE BLOOD COUNT 12.1 K/mm3 (4.0-10.0)
[2017-11-24 07:59] LABS: ANION GAP 9 (8-16); BLOOD UREA NITROGEN 23 mg/dL (7-18); CALCIUM 8.5 mg/dL (8.5-10.1); CHLORIDE 106 mmol/L (98-107); CO2 27 mmol/L (21-32); CREATININE 0.8 mg/dL (0.7-1.3); GLUCOSE,RANDOM 73 mg/dL (74-106); POTASSIUM 4.2 mmol/L (3.5-5.1); SODIUM 142 mmol/L (136-145)
[2017-11-24] MEDS: COLCHICINE 0.6 MG TABLET (FP) PO SCH (09:35)
[2017-11-24] MEDS: predniSONE 20 MG TABLET (UD) PO SCH (09:35)
[2017-11-24] MEDS: amLODIPine BESYLATE 10 MG TABLET (FP) PO SCH (09:36)
[2017-11-24] MEDS: METOPROLOL TARTRATE 50 MG TABLET (FP) PO SCH (09:36)
--- NOTE | 2017-11-24 11:40 | PN ---
Teaching Attending Note Name of Resident: Shae Monzon ATTENDING PHYSICIAN STATEMENT I saw and evaluated the patient. I reviewed the resident's note and discussed the case with the resident. I agree with the resident's findings and plan as documented. SUBJECTIVE: No fever or chills. feels better. pain in joints has improved OBJECTIVE: NAD , pleasant , and cooperative CV: RRR, No MRG Lungs: CTAb Ext: Edema , erythema, and tenderness over ankles, feet and toes improved compared to yesterday. improved range of motion of ankles. R knee with no erythema or warmth today.+ suprapatellar effusion. limited range of motion in R knee. No effusion felt in L knee. R hand small joints involved. R little finger tophus . tenderness in L hands joints. L elbow big tophus . R elbow tenderness and limited range of motion ASSESSMENT AND PLAN: 57 y/o man with recent diagnosis of Gout 3 months ago, Dm , HTN, HLP, who presented with joint pain and swelling. 1- Polyarticular gout . improved on steroids . synovial fluid with inflamatory pictures due to SMU crystals . no suspicion for infectin . WBC improved withno Abx - cont short steroid course , start 30 tomorrow - cont colchicine for prophylaxis - avoid NSAIDs at this time due to BERNA, =just recovered - will need allopurinol after acute episode . - refer to rheum as out pt 2- Elevated trop: No acute ischemic changes on EKG. stress as out pt 3- BERNA : due to NSAIDs use . resolved. DC IVF 4- DM :resume metformin at dc 5- HTN . Norvac DC home , pending PT. he might need a cane
[2017-11-24] MEDS: ACETAMINOPHEN 325 MG TABLET (FP) PO PRN (11:58)
[2017-11-24 15:33] VITALS: BP 110/58; PULSE 81; TEMP 98.4
--- NOTE | 2017-11-24 17:50 | PN ---
Progress Note (short form) - Note Progress Note: Pt seen, dramatically better s/p right knee aspiration. Pt states all his pain in right knee is gone. Knee looks much better. Labs c/w Gout Rec Con't with gout medicine
--- NOTE | 2017-11-24 18:00 | DS ---
Physical Exam: SUBJECTIVE: Patient is a 57 y/o male with a past medical history of gout, HTN, HLD, DM who is admitted for gout. Patient reports he feels much better today. He still has some pain with ambulation but is able to ambulate. No acute events overnight. OBJECTIVE: Vital Signs Period Temp Pulse Resp BP Sys/Gomez Pulse Ox Last 24 Hr 97.8 F-99.9 F 81-110 18-20 110-127/58-82 95-95 PHYSICAL EXAM GENERAL: The patient is awake, alert, and fully oriented, in no acute distress. EYES: PERRL, extraocular movements intact, L eye sclera injected LUNGS: Breath sounds equal, clear to auscultation bilaterally HEART: Regular rate and rhythm, ABDOMEN: Soft, nontender, nondistended, EXTREMITIES: R hand pinky and first finger, Left elbow, right knee, bilateral feet, tender to palpation, swollen, and erythematous, no pitting edema, DP 2+, ROM intact PSYCH: Normal mood, normal affect. LABS Laboratory Results - last 24 hr 11/23/17 11/23/17 11/23/17 16:54 18:00 22:10 WBC RBC Hgb Hct MCV MCH MCHC RDW Plt Count MPV Sodium Potassium Chloride Carbon Dioxide Anion Gap BUN Creatinine Creat Clearance w eGFR POC Glucometer 124 151 Random Glucose Calcium Synovial Source Right knee Synovial WBC 37,369 Synovial RBC 26,909 Synovial Neutrophils 100 Synovial Crystals Positive for msu Synovial Glucose 5 Synovial Total Protein 4 Synovial LDH 1320 Synovial Amylase 12 11/24/17 11/24/17 11/24/17 06:00 06:00 06:01 WBC 12.1 H RBC 4.08 Hgb 12.2 Hct 36.5 MCV 89.6 MCH 29.9 MCHC 33.3 RDW 15.1 Plt Count 304 MPV 7.8 Sodium 142 Potassium 4.2 Chloride 106 Carbon Dioxide 27 Anion Gap 9 BUN 23 H Creatinine 0.8 Creat Clearance w eGFR > 60 POC Glucometer 93 Random Glucose 73 L D Calcium 8.5 Synovial Source Synovial WBC Synovial RBC Synovial Neutrophils Synovial Crystals Synovial Glucose Synovial Total Protein Synovial LDH Synovial Amylase 11/24/17 11/24/17 11:47 16:10 WBC RBC Hgb Hct MCV MCH MCHC RDW Plt Count MPV Sodium Potassium Chloride Carbon Dioxide Anion Gap BUN Creatinine Creat Clearance w eGFR POC Glucometer 99 170 Random Glucose Calcium Synovial Source Synovial WBC Synovial RBC Synovial Neutrophils Synovial Crystals Synovial Glucose Synovial Total Protein Synovial LDH Synovial Amylase HOSPITAL COURSE: Date of Admission:11/22/17 Patient is a 57 y/o male with a past medical history of gout, HTN, HLD, DM who presented with polyarticular joint pain. 3 months ago he was diagnosed with gout. For the last two weeks he has not been taking his prescriptions. At presentation he was febrile. In the ED patient received cholchicine, morphine, Naproxen , zosyn, and vancomycin. Xray of the knees showed osteoarthritis involving the bilateral medial tibiofemoral join compartment and bilateral suprapatellar joint effusion. Orthopedics, Dr. Henderson, was consulted ad they preformed a joint aspiration. The fluid was positive for MSU crystals, has 37,00 WBC and 26,000 RBC. Patient was restarted on cholcicine and given steroids. His pain significantly decreased. Patient presented with a slight elevation in BUN (24) and Cr (1.4). Fluids were given and patient was not given NSAID's. patients kidney function resolved. Patient will follow up with Rheumatology to start Allopurinol. Patient instructed to not take his indomethacin. Patient instructed to follow up with PCP in one week. CXR: prominent mediastinum, no acute pathology Date of Discharge: 11/24/17 Minutes to complete discharge: 35 Discharge Summary Reason For Visit: GOUT/LEUKOCYTOSIS Current Active Problems Gout, joint (Chronic) Condition: Improved - Instructions Diet, Activity, Other Instructions: You came to the hospital because you had a gout flare up. Gout is when your joints have too much uric acid in them. You need to take your medications so that you do not have another episode of gout. You will continue to take: Colchicine 0.6 mg daily You were put on steroids to help the inflammation in your joints. You will take 6 more days of steroids. The first two days (11/25, 11/26) you will take three pills (three 10 mg pills= 30 mg) by mouth once a day. The following two days (, 11/28) you will take two pills (20 mg) by mouth once a day. The last two days (11/29, 11/30) you will take one pill (10 mg ) by mouth once a day. We are going to refer you to a senior embedded software engineer, Dr. Retana, and you should follow up with them within one week. You might need to start taking the medication Allopurinol. Your senior embedded software engineer will prescribe you the medication and tell you when to start taking it. Please follow up with your Primary Care doctor within one week. DO NOT continue to take the indomethacin, but please continue to take the rest of your medications as prescribed. Please return to the Emergency Doctor if you have any worsening of symptoms, headache, fevers, chills, shortness of breath, or chest pain. Use cane to ambulate En Espanol: Usted vino al hospital porque evelyne un ataque de gota. La gota es cuando radha articulaciones tienen demasiado cido rico. Debe roverto radha medicamentos para no tener otro episodio de gota. Continuars tomando: Colchicina .6 mg Le pusieron esteroides para ayudar a la inflamacin en radha articulaciones. Roverto 6 mejias ms de esteroides. Los dos primeros mejias roverto lawson pastillas ( 30 mg) por va oral luisito vez al da. Los siguientes dos mejias roverto dos pldoras (20 mg) por va oral luisito vez al da. Los ltimos dos mejias roverto luisito pastilla ( 10 mg) por va oral luisito vez al da. No continuar tomando umaña indometacina hasta que umaña PCP le diga que est skyler hacerlo. Vamos a referirlo a un reumatlogo, el Dr. Retana, y debe seguir con ellos dentro de luisito semana. Deberas comenzar a roverto el medicamento Allopurinol. Umaña reumatlogo le recetar el medicamento y le dir cundo comenzar a tomarlo. Por favor, deneen un seguimiento con umaña mdico de [facility] dentro de luisito semana. NO contine tomando la indometacina, karen contine tomando el roz de radha medicamentos segn lo recetado. Si tiene algn empeoramiento de los sntomas, dolor de kieran, fiebre, escalofros, dificultad para respirar o dolor en el pecho, regrese al mdico de urgencias. Referrals: Avinash Calhoun [Primary Care Provider] - Min Retana MD [Staff Physician] - Disposition: HOME - Home Medications Comprehensive Discharge Medication List: Ambulatory Orders Amlodipine Besylate 10 mg PO DAILY #30 tablet 11/24/17 Cane 1 each ASDIR #1 each 11/24/17 Colchicine 0.6 tab PO DAILY #30 tablet 11/24/17 Metformin HCl [Glucophage] 1,000 mg PO DAILY #30 tablet 11/24/17 Prednisone See Taper PO DAILY #12 tablet 11/24/17 This patient is new to me today: No Emergency Visit: No Critical Care patient: No - Discharge Referral Referred to [facility] No
== END 2017-11-24 18:35 | disposition home or self-care (01) | DRG 351 ==
LOC: JER 13:04 → JERBED 19:50 → J4S 11-23 00:56
PROVIDERS: ADMIT Internal Medicine; ATTEND Internal Medicine
PROC: 0S9C3ZZ Drainage of Right Knee Joint, Percutaneous Approach (ICD-10-PCS; principal; 2017-11-23)
DX: M10.9 Gout, unspecified (principal); N17.9 Acute kidney failure, unspecified; I10 Essential (primary) hypertension; E11.9 Type 2 diabetes mellitus without complications; E78.5 Hyperlipidemia, unspecified; M17.0 Bilateral primary osteoarthritis of knee; H10.32 Unspecified acute conjunctivitis, left eye; M25.462 Effusion, left knee; M25.461 Effusion, right knee; E66.9 Obesity, unspecified; Z68.38 Body mass index [BMI] 38.0-38.9, adult
CPT/HCPCS: 36415; 71045-TC-FY; 73560-TC-LT-FY; 73560-TC-RT-FY; 80048; 80053; 81003; 81015; 82150; 82803; 82945; 82962; 83605; 83615; 84157; 84484; 84550; 85025; 85027; 85610; 85651; 85730; 86140; 86618; 87040; 87070; 87075; 87086; 87205; 89051; 89060; 93005; 93010; 99284-25; J0131; J1644; J7030

== ENCOUNTER 2018-01-16 17:02 | Observation (INO) | payer OTHER ==
[2018-01-16] MEDS ORDERED: SODIUM CHLORIDE 1,000 ML IV STA (17:12)
[2018-01-16] MEDS ORDERED: ACETAMINOPHEN 325 MG TABLET (FP) PO ONE (17:12)
--- NOTE | 2018-01-16 17:19 | PDOC ---
Rapid Medical Evaluation Chief Complaint: SIRS, Suspected/Possible Time Seen by Provider: 01/16/18 17:11 Medical Evaluation: Allergies Allergy/AdvReac Type Severity Reaction Status Date / Time No Known Allergies Allergy Verified 01/16/18 17:10 Vital Signs Temp Pulse Resp BP Pulse Ox 102.8 F H 146 H 20 122/86 97 01/16/18 17:07 01/16/18 17:07 01/16/18 17:07 01/16/18 17:07 01/16/18 17:07 01/16/18 17:15 have performed a brief in-person evaluation of this patient. The patient presents with a chief complaint of:Pain and swelling to multiple joints x 3 days. H/o gout on cochicine, HTN, HLD, DM. Pt seen and admitted for R knee pain 11/14, was tachy and febrile and tx w/ abx. Ultimately dx w/ gout and dc w/ colchicine and steroids Pertinent physical exam findings: febrile and tachy w/ L elbow swelling and erythema, also has swelling to R hand, R knee exam deferred I have ordered the following:sepsis order set The patient will proceed to the ED for further evaluation. Discharge Disposition - Diagnosis Joint swelling - Discharge Dispostion Last Admission D/C Date: 11/24/17 - Referrals - Patient Instructions - Post Discharge Activity
[2018-01-16] MEDS ORDERED: ACETAMINOPHEN 325 MG TABLET (FP) ONE (18:20)
[2018-01-16 18:57] LABS: VENOUS PC02 38.8 mmHg (38-52); VENOUS PH 7.42 (7.32-7.42); VENOUS PO2 45.3 mmHg (28-48)
[2018-01-16] MEDS ORDERED: INDOMETHACIN 50 MG CAPSULE PO ONE (18:57)
[2018-01-16] MEDS ORDERED: SODIUM CHLORIDE 0.9% 500 ML INFUS.BAG IV ONE (18:58)
[2018-01-16 19:05] LABS: BASO % 0.7 % (0-2.0); EOS % 0.1 % (0-4.5); HEMOGLOBIN 13.5 GM/dL (11.7-16.9); LYMPH % 5.8 % (8-40); MCH 28.8 pg (25.7-33.7); MCHC 32.8 g/dl (32.0-35.9); MEAN CELL VOLUME 87.6 fl (80-96); MEAN PLT VOLUME 7.6 fl (7.5-11.1); MONO % 8.3 % (3.8-10.2); NEUT % 85.1 % (42.8-82.8); PLATELET COUNT 343 K/MM3 (134-434); RBC 4.69 M/mm3 (4.00-5.60); RDW 15.9 % (11.9-15.9); WHITE BLOOD COUNT 17.7 K/mm3 (4.0-10.0)
[2018-01-16 19:29] LABS: ALBUMIN 3.6 g/dl (3.4-5.0); ALK PHOS 143 U/L (45-117); ANION GAP 13 MMOL/L (8-16); BILIRUBIN,TOTAL 1.2 mg/dL (0.2-1); BLOOD UREA NITROGEN 17 mg/dL (7-18); CALCIUM 9.6 mg/dL (8.5-10.1); CHLORIDE 99 mmol/L (98-107); CO2 25 mmol/L (21-32); CREATININE 1.1 mg/dL (0.55-1.3); GLUCOSE,RANDOM 90 mg/dL (74-106); POTASSIUM 3.9 mmol/L (3.5-5.1); SGOT/AST 23 U/L (15-37); SGPT/ALT 40 U/L (13-61); SODIUM 137 mmol/L (136-145); TOT PROT 7.9 g/dl (6.4-8.2); URIC ACID 7.3 mg/dL (2.6-7.2)
[2018-01-16 19:29] LABS: URINE APPEARANCE CLEAR; URINE BILIRUBIN NEGATIVE (<2.0 mg/dL); URINE COLOR YELLOW; URINE GLUCOSE (UA) NEGATIVE (NEGATIVE); URINE KETONE NEGATIVE (NEGATIVE); URINE LEUK ESTERASE NEGATIVE (NEGATIVE); URINE NITRITE NEGATIVE (NEGATIVE); URINE PROTEIN NEGATIVE (NEGATIVE); URINE UROBILINOGEN NEGATIVE mg/dL (0.2-1.0)
[2018-01-16 19:31] LABS: INR 1.16 (0.83-1.09); PROTHROMBIN TIME (PATIENT) 13.1 SEC (9.7-13.0)
[2018-01-16 19:49] LABS: EPI CELLS RARE /HPF (FEW); URINE MUCUS RARE
--- NOTE | 2018-01-16 20:01 | PDOC ---
History of Present Illness - History of Present Illness Initial Comments: The patient is a 57M with a history of HTN, T2DM, Hypercholesterolemia, and gout who presents with 2 day of R hand, elbow, knee and L elbow pain, redness, and swelling. The patient endorses associated fevers/chills. He denies recent hiking/camping, dysuria, penile discharge. He denies N/V, vision changes, chest pain, SOB, abdominal pain, constipation, or diarrhea. The patient endorses swelling over his left elbow for the last 4 months but only noticed the pain there since Sunday as well. The patient stated he was scheduled to have surgery on his elbow but does not know what surgery. The patient reports requiring a R knee tap in the past to remove the fluid, ' before the fluid crystalized' The patient states that this is similar to gout flairs he has had in the past and was treated here previously; however, he has not have fevers to this extent in the past with his gout flairs. 01/16/18 19:57 01/16/18 20:02 <Errol Carroll - Last Filed: 01/16/18 19:56> <Raphael Mata - Last Filed: 01/17/18 01:59> - General Chief Complaint: SIRS, Suspected/Possible Stated Complaint: BLOOD EVALUATION Time Seen by Provider: 01/16/18 17:11 Past History - Past Medical History COPD: No Diabetes: Yes HTN: Yes Hypercholesterolemia: Yes Other medical history: GOUT - Surgical History Orthopedic Surgery: Yes (left knee meniscus repair) - Suicide/Smoking/Psychosocial Hx Smoking History: Never smoked Have you smoked in the past 12 months: No Number of Cigarettes Smoked Daily: 0 Cigars Per Day: 0 Hx Alcohol Use: No Drug/Substance Use Hx: No Substance Use Type: None Hx Substance Use Treatment: No <Errol Carroll - Last Filed: 01/16/18 19:56> <Raphael Mata - Last Filed: 01/17/18 01:59> - Past Medical History Allergies/Adverse Reactions: Allergies Allergy/AdvReac Type Severity Reaction Status Date / Time No Known Allergies Allergy Verified 01/16/18 17:10 Home Medications: Ambulatory Orders Amlodipine Besylate 10 mg PO DAILY #30 tablet 11/24/17 Cane 1 each ASDIR #1 each 11/24/17 Colchicine 0.6 tab PO DAILY #30 tablet 11/24/17 Erythromycin 0.5% Eye Ointment [Erythromycin 0.5% Eye Ointment -] 1 applic OS DAILY #1 tube 11/24/17 Metformin HCl [Glucophage] 1,000 mg PO DAILY #30 tablet 11/24/17 Prednisone See Taper PO DAILY #12 tablet 11/24/17 Review of Systems - Review of Systems Able to Perform ROS?: Yes Comments:: GENERAL/CONSTITUTIONAL: +fevers & chills. No weakness HEAD, EYES, EARS, NOSE AND THROAT: No change in vision. No ear pain or discharge. No sore throat CARDIOVASCULAR: No chest pain or shortness of breath RESPIRATORY: No cough, wheezing, or hemoptysis GASTROINTESTINAL: No nausea, vomiting, diarrhea or constipation GENITOURINARY: No dysuria, frequency, or change in urination MUSCULOSKELETAL: per HPI SKIN: No rash NEUROLOGIC: No headache, vertigo, loss of consciousness, or change in strength/ sensation ENDOCRINE: No increased thirst. No abnormal weight change HEMATOLOGIC/LYMPHATIC: No anemia, easy bleeding, or history of blood clots ALLERGIC/IMMUNOLOGIC: No hives or skin allergy 01/16/18 20:01 <Errol Carroll - Last Filed: 01/16/18 19:56> *Physical Exam - Vital Signs Last Vital Signs Temp Pulse Resp BP Pulse Ox 102.8 F H 146 H 20 122/86 97 01/16/18 17:07 01/16/18 17:07 01/16/18 17:07 01/16/18 17:07 01/16/18 17:07 - Physical Exam Comments: GENERAL: Awake, alert, and fully oriented, in mild distress HEAD: No signs of trauma, normocephalic, atraumatic EYES: PERRLA, EOMI, sclera anicteric, conjunctiva clear ENT: Hearing grossly normal, nares patent, oropharynx clear without exudates. Moist mucosa NECK: Normal ROM, supple, no lymphadenopathy LUNGS: No distress, speaks full sentences, clear to auscultation bilaterally HEART:Regular rate and rhythm, normal S1 and S2, no murmurs appreciated, peripheral pulses normal and equal bilaterally ABDOMEN: Soft, nontender, normoactive bowel sounds. No guarding, no rebound EXTREMITIES : R index MCP, R thumb MCP, R wrist, R elbow, L elbow, and R knee TTP, erythema, and reduced ROM 2/2 pain. The patient is most notably exquisitely tender over the R elbow and has pain with AROM and PROM. R elbow with likely effusion NEUROLOGICAL: Cranial nerves II through XII grossly intact. Normal speech, no focal sensorimotor deficits 01/16/18 20:03 <Errol Carroll - Last Filed: 01/16/18 19:56> - Vital Signs Last Vital Signs Temp Pulse Resp BP Pulse Ox 101.8 F H 146 H 20 122/86 97 01/16/18 20:27 01/16/18 17:07 01/16/18 17:07 01/16/18 17:07 01/16/18 17:07 <Raphael Mata - Last Filed: 01/17/18 01:59> ED Treatment Course - LABORATORY CBC & Chemistry Diagram: 01/16/18 18:30 01/16/18 18:30 - ADDITIONAL ORDERS Additional order review: Laboratory Results 01/16/18 01/16/18 01/16/18 19:10 18:45 18:30 PT with INR INR PTT (Actin FS) VBG pH 7.42 POC VBG pCO2 38.8 POC VBG pO2 45.3 D Mixed VBG HCO3 24.4 Sodium Potassium Chloride Carbon Dioxide Anion Gap BUN Creatinine Creat Clearance w eGFR Random Glucose Lactic Acid Uric Acid 7.3 H Calcium Total Bilirubin AST ALT Alkaline Phosphatase Troponin I C-Reactive Protein 25.5 H Total Protein Albumin Urine Color Yellow Urine Appearance Clear Urine pH 5.0 Ur Specific Fifty Six 1.015 Urine Protein Negative Urine Glucose (UA) Negative Urine Ketones Negative Urine Blood 1+ H Urine Nitrite Negative Urine Bilirubin Negative Urine Urobilinogen Negative Ur Leukocyte Esterase Negative Urine WBC (Auto) 1 Urine RBC (Auto) 2 Ur Epithelial Cells Rare Urine Mucus Rare 01/16/18 01/16/18 01/16/18 18:30 18:30 18:30 PT with INR INR PTT (Actin FS) VBG pH POC VBG pCO2 POC VBG pO2 Mixed VBG HCO3 Sodium 137 Potassium 3.9 Chloride 99 Carbon Dioxide 25 Anion Gap 13 BUN 17 Creatinine 1.1 Creat Clearance w eGFR > 60 Random Glucose 90 Lactic Acid 2.0 Uric Acid Calcium 9.6 Total Bilirubin 1.2 H AST 23 ALT 40 Alkaline Phosphatase 143 H Troponin I 0.13 H C-Reactive Protein Total Protein 7.9 Albumin 3.6 Urine Color Urine Appearance Urine pH Ur Specific Fifty Six Urine Protein Urine Glucose (UA) Urine Ketones Urine Blood Urine Nitrite Urine Bilirubin Urine Urobilinogen Ur Leukocyte Esterase Urine WBC (Auto) Urine RBC (Auto) Ur Epithelial Cells Urine Mucus 01/16/18 18:30 PT with INR 13.10 H INR 1.16 H PTT (Actin FS) 29.0 VBG pH POC VBG pCO2 POC VBG pO2 Mixed VBG HCO3 Sodium Potassium Chloride Carbon Dioxide Anion Gap BUN Creatinine Creat Clearance w eGFR Random Glucose Lactic Acid Uric Acid Calcium Total Bilirubin AST ALT Alkaline Phosphatase Troponin I C-Reactive Protein Total Protein Albumin Urine Color Urine Appearance Urine pH Ur Specific Fifty Six Urine Protein Urine Glucose (UA) Urine Ketones Urine Blood Urine Nitrite Urine Bilirubin Urine Urobilinogen Ur Leukocyte Esterase Urine WBC (Auto) Urine RBC (Auto) Ur Epithelial Cells Urine Mucus 01/16/18 18:30 RBC 4.69 MCV 87.6 MCHC 32.8 RDW 15.9 MPV 7.6 Neutrophils % 85.1 H Lymphocytes % 5.8 L D Monocytes % 8.3 Eosinophils % 0.1 D Basophils % 0.7 D - Medications Given in the ED: ED Medications Discontinued Medications Generic Name Dose Route Start Last Admin Trade Name Freq PRN Reason Stop Dose Admin Acetaminophen 650 mg 01/16/18 17:12 01/16/18 18:35 Tylenol - PO 01/16/18 17:13 650 mg ONCE ONE Administration Sodium Chloride 1,000 mls @ 1,000 mls/hr 01/16/18 17:12 01/16/18 18:53 Normal Saline - IV 01/16/18 18:11 1,000 mls/hr ASDIR STA Administration Indomethacin 50 mg 01/16/18 18:57 01/16/18 19:37 Indocin - PO 01/16/18 18:58 50 mg ONCE ONE Administration Sodium Chloride 1,000 ml 01/16/18 18:58 01/16/18 19:37 Normal Saline - IV 01/16/18 18:59 1,000 ml ONCE ONE Administration <Errol Carroll - Last Filed: 01/16/18 19:56> - LABORATORY CBC & Chemistry Diagram: 01/16/18 18:30 01/16/18 18:30 - ADDITIONAL ORDERS Additional order review: Laboratory Results 01/16/18 01/16/18 01/16/18 19:10 18:45 18:30 PT with INR INR PTT (Actin FS) VBG pH 7.42 POC VBG pCO2 38.8 POC VBG pO2 45.3 D Mixed VBG HCO3 24.4 Sodium Potassium Chloride Carbon Dioxide Anion Gap BUN Creatinine Creat Clearance w eGFR Random Glucose Lactic Acid Uric Acid 7.3 H Calcium Total Bilirubin AST ALT Alkaline Phosphatase Troponin I C-Reactive Protein 25.5 H Total Protein Albumin Urine Color Yellow Urine Appearance Clear Urine pH 5.0 Ur Specific Fifty Six 1.015 Urine Protein Negative Urine Glucose (UA) Negative Urine Ketones Negative Urine Blood 1+ H Urine Nitrite Negative Urine Bilirubin Negative Urine Urobilinogen Negative Ur Leukocyte Esterase Negative Urine WBC (Auto) 1 Urine RBC (Auto) 2 Ur Epithelial Cells Rare Urine Mucus Rare 01/16/18 01/16/18 01/16/18 18:30 18:30 18:30 PT with INR INR PTT (Actin FS) VBG pH POC VBG pCO2 POC VBG pO2 Mixed VBG HCO3 Sodium 137 Potassium 3.9 Chloride 99 Carbon Dioxide 25 Anion Gap 13 BUN 17 Creatinine 1.1 Creat Clearance w eGFR > 60 Random Glucose 90 Lactic Acid 2.0 Uric Acid Calcium 9.6 Total Bilirubin 1.2 H AST 23 ALT 40 Alkaline Phosphatase 143 H Troponin I 0.13 H C-Reactive Protein Total Protein 7.9 Albumin 3.6 Urine Color Urine Appearance Urine pH Ur Specific Fifty Six Urine Protein Urine Glucose (UA) Urine Ketones Urine Blood Urine Nitrite Urine Bilirubin Urine Urobilinogen Ur Leukocyte Esterase Urine WBC (Auto) Urine RBC (Auto) Ur Epithelial Cells Urine Mucus 01/16/18 18:30 PT with INR 13.10 H INR 1.16 H PTT (Actin FS) 29.0 VBG pH POC VBG pCO2 POC VBG pO2 Mixed VBG HCO3 Sodium Potassium Chloride Carbon Dioxide Anion Gap BUN Creatinine Creat Clearance w eGFR Random Glucose Lactic Acid Uric Acid Calcium Total Bilirubin AST ALT Alkaline Phosphatase Troponin I C-Reactive Protein Total Protein Albumin Urine Color Urine Appearance Urine pH Ur Specific Fifty Six Urine Protein Urine Glucose (UA) Urine Ketones Urine Blood Urine Nitrite Urine Bilirubin Urine Urobilinogen Ur Leukocyte Esterase Urine WBC (Auto) Urine RBC (Auto) Ur Epithelial Cells Urine Mucus 01/16/18 18:30 RBC 4.69 MCV 87.6 MCHC 32.8 RDW 15.9 MPV 7.6 Neutrophils % 85.1 H Lymphocytes % 5.8 L D Monocytes % 8.3 Eosinophils % 0.1 D Basophils % 0.7 D - Medications Given in the ED: ED Medications Discontinued Medications Generic Name Dose Route Start Last Admin Trade Name Rosy PRN Reason Stop Dose Admin Acetaminophen 650 mg 01/16/18 17:12 01/16/18 18:35 Tylenol - PO 01/16/18 17:13 650 mg ONCE ONE Administration Colchicine 1.2 mg 01/16/18 20:54 01/16/18 20:59 Colcrys - PO 01/16/18 20:55 1.2 mg ONCE ONE Administration Sodium Chloride 1,000 mls @ 1,000 mls/hr 01/16/18 17:12 01/16/18 18:53 Normal Saline - IV 01/16/18 18:11 1,000 mls/hr ASDIR STA Administration Indomethacin 50 mg 01/16/18 18:57 01/16/18 19:37 Indocin - PO 01/16/18 18:58 50 mg ONCE ONE Administration Sodium Chloride 1,000 ml 01/16/18 18:58 01/16/18 19:37 Normal Saline - IV 01/16/18 18:59 1,000 ml ONCE ONE Administration <Raphael Mata - Last Filed: 01/17/18 01:59> Medical Decision Making - Medical Decision Making The patient is a 57M with a history of HTN, T2DM, Hypercholesterolemia, and gout who presents with 2 day of R hand, elbow, knee and L elbow pain, redness, and swelling. The patient endorses associated fevers/chills. Ddx: sepsis v gout v GC v lyme v other infectious or inflammatory polyarthritis v sepsis ED Course CMP, CBC, ESR, CRP UA, UCx, GC/chlamydia Lyme titer XR R hand/wrist, elbow, knee, L elbow Will give Indocin 50mg once and 2L NS Dispo pending 01/16/18 20:08 <Errol Carroll - Last Filed: 01/16/18 19:56> *DC/Admit/Observation/Transfer <Errol Carroll - Last Filed: 01/16/18 19:56> - Discharge Dispostion Decision to Admit order: Yes <Raphael Mata - Last Filed: 01/17/18 01:59> Diagnosis at time of Disposition: Gout, arthritis, Polyarthritis of multiple sites Fever Qualifiers: Fever type: unspecified Qualified Code(s): R50.9 - Fever, unspecified - Discharge Dispostion Condition at time of disposition: Fair - Patient Instructions Printed Discharge Instructions: DI for Gout
[2018-01-16] MEDS ORDERED: COLCHICINE 0.6 MG TABLET (FP) PO ONE (20:54)
[2018-01-16] MEDS ORDERED: COLCHICINE 0.6 MG TABLET (FP) ONE (20:58)
[2018-01-17] MEDS ORDERED: CEFTRIAXONE 2,000 MG in DEXTROSE 5%-WATER - 50 ML IVPB ONE (01:50)
[2018-01-17] MEDS ORDERED: CEFTRIAXONE 2 GM/100 ML BAG IVPB ONE (01:56)
--- NOTE | 2018-01-17 01:57 | PDOC ---
Attending Attestation - Resident Resident Name: Errol Carroll - ED Attending Attestation I have performed the following: I have examined & evaluated the patient, The case was reviewed & discussed with the resident, I agree w/resident's findings & plan, Exceptions are as noted - HPI HPI: 01/17/18 01:51 57-year-old male, Brazilian-speaking, with history of gout, type 2 diabetes and hypertension presents with fever and severe pain with soft tissue swelling to the left elbow, right elbow, right hand, right fifth digit and right knee. Patient reports that symptoms started several days after urine out of culture sent which was prescribed after his previous episode of diffuse gout. - Physicial Exam PE: 01/17/18 01:52 On initial evaluation, patient noted to be febrile, tachycardic and diaphoretic ; normocephalic, atraumatic PERRLA, EOMI, no photophobia CTA Tachycardic, RRR Abdomen soft, nondistended, nontender Pelvis is stable Left elbow reveals extensive erythema with soft tissue swelling over the olecranon consistent with acute bursitis, with intact flexion/extension; right elbow is minimally edematous with significantly limited flexion and extension due to pain; there is erythema and soft tissue swelling with tenderness to palpation along the second MP joint as well as the entire fifth digit of the right hand; minimal erythema of the right knee is noted with pain on extension/ flexion; neurovascularly intact distally. - Medical Decision Making 01/17/18 01:54 57-year-old male with history of diffuse gout presents with fever, tachycardia and polyarthritis. CBC reveals leukocytosis, ESR and CRP are elevated. Uric acid is also noted to be elevated. X-ray of the right hand reveals destruction of the distal proximal phalanx with extension into the joint; x-ray of the left elbow reveals calcified bursa; x-rays of the right elbow and right knee reveal no evidence of fracture dislocation. Patient received Indocin-50 mg and colchicine-1.2 mg with significant improvement in in pain and range and motion. I discussed the case with orthopedics. Patient's symptoms are likely related to diffuse gout but infection cannot be excluded at this time. I initially advised the patient of the need for arthrocentesis of the left bursa which appeared acutely inflamed but further questioning and x-ray revealed that it is calcified which is likely long-standing. I attempted to aspirate fluid from the PIP of the fifth digit of the right hand after sterile prep. No fluid was aspirated. Will administer IV ceftriaxone at this time. Will admit.
--- NOTE | 2018-01-17 03:30 | HP ---
CHIEF COMPLAINT: Right Elbow and Finger pain PCP: HISTORY OF PRESENT ILLNESS: 57 y/o M with PMHx of Gout (On Colchicine), HTN, HLD, T2DM presents with Right 5th digit, Right Elbow, Right Knee and Left Elbow pain, swelling and mild to moderate erythema since Sunday. Patient went to sleep without any complaints on Sunday evening and Sunday morning, he woke with 10/10 Constant Ache in these areas. The pain in the Right Knee radiates to the Right great toe, and the pain in the Right 5th digit radiates to the right elbow. He was recently admitted on 11/22 for a Gout flare during which a right knee joint aspiration was performed. Patient was also discharged on Colchicine and Steroids however he says he ran out one week ago and is not able to afford a refill. He has tried Ibproufen 800mg with Acetaminophen 325mg which provided some relief, but he has continued to experience pain, swelling and mild to moderate erythema and decided to visit [facility] ED. Denies any new sexual partners, recent injuries to the hand/elbows/knees, consumption of alcohol/shrimp/seafoods, any new diuretic use, recent hiking/ camping. Denies any current dysuria, hematuria, fevers, chills, abdominal pain, Chest pain, SOB. His last BM was this morning and his last meal was lunch. ER course was notable for: (1) Orthopedics (Dr. Henderson) Consulted (2) Indomethacin 50, Colchicine 1.2 x1 (3) Recent Travel: Denies PAST MEDICAL HISTORY: Gout (On Colchicine) HTN HLD T2DM PAST SURGICAL HISTORY: Left Knee Meniscus repair Social History: Smoking: Denies Alcohol: Denies Drugs: Denies Occupation: casino gaming worker Residence: Apartment alone Ambulation: With walker Family History: Mom: DM, Alzheimers Dad: Unknown Allergies No Known Allergies Allergy (Verified 01/16/18 17:10) HOME MEDICATIONS: Home Medications Medication Instructions Recorded Amlodipine Besylate 10 mg PO DAILY #30 tablet 11/24/17 Cane 1 each MC ASDIR #1 each 11/24/17 Colchicine 0.6 tab PO DAILY #30 tablet 11/24/17 Erythromycin 0.5% Eye Ointment 1 applic OS DAILY #1 tube 11/24/17 [Erythromycin 0.5% Eye Ointment -] Metformin HCl [Glucophage] 1,000 mg PO DAILY #30 tablet 11/24/17 Prednisone See Taper PO DAILY #12 tablet 11/24/17 REVIEW OF SYSTEMS CONSTITUTIONAL: Present: Fever, Chills Absent: diaphoresis, generalized weakness, malaise, loss of appetite, weight change HEENT: Absent: rhinorrhea, nasal congestion, throat pain, throat swelling, difficulty swallowing, mouth swelling, ear pain, eye pain, visual changes CARDIOVASCULAR: Absent: chest pain, syncope, palpitations, irregular heart rate, lightheadedness , peripheral edema RESPIRATORY: Absent: cough, shortness of breath, dyspnea with exertion, orthopnea, wheezing, stridor, hemoptysis GASTROINTESTINAL: Absent: abdominal pain, abdominal distension, nausea, vomiting, diarrhea, constipation, melena, hematochezia GENITOURINARY: Absent: dysuria, frequency, urgency, hesitancy, hematuria, flank pain, genital pain MUSCULOSKELETAL: Present: Right 5th digit, Right Elbow, Right Knee and Left Elbow swelling Absent: myalgia, arthralgia, back pain, neck pain SKIN: Absent: rash, itching, pallor HEMATOLOGIC/IMMUNOLOGIC: Absent: easy bleeding, easy bruising, lymphadenopathy, frequent infections ENDOCRINE: Absent: unexplained weight gain, unexplained weight loss, heat intolerance, cold intolerance NEUROLOGIC: Absent: headache, focal weakness or paresthesias, dizziness, unsteady gait, seizure, mental status changes, bladder or bowel incontinence PSYCHIATRIC: Absent: anxiety, depression, suicidal or homicidal ideation, hallucinations. PHYSICAL EXAMINATION Vital Signs - 24 hr 01/16/18 01/16/18 01/17/18 17:07 20:27 02:10 Temperature 102.8 F H 101.8 F H 98.4 F Pulse Rate 146 H Pulse Rate [ 88 Right Radial] Respiratory 20 18 Rate Blood Pressure 122/86 Blood Pressure 114/66 [Left Arm] O2 Sat by Pulse 97 94 L Oximetry (%) GENERAL: Awake, alert, and fully oriented, in no acute distress. HEAD: NCAT EYES: PERRLA, EOMI THROAT: Oropharynx clear without exudates. Moist mucous membranes. NECK: No JVD. LUNGS: Breath sounds equal, clear to auscultation bilaterally. No wheezes. HEART: Tachycardic, normal S1 and S2 without murmur. ABDOMEN: Soft, nontender, not distended, normoactive bowel sounds, no guarding. MUSCULOSKELETAL: No CVA tenderness. SKIN: Warm, dry, no rashes or lesions noted, normal capillary refill. EXTREMITIES: - 2+ pulses throughout - Upper and Lower extremity gross sensation intact throughout - Right hand and forearm swollen compared to Left - Right 5th digit, Right 2nd digit MCP joint with mild erythema and tenderness to palpation - Right hand digits unable to flex due to pain, Left hand digits ROM intact. - Right Elbow, Right Knee and Left Elbow tender to palpation - Right Elbow unable to extend completely due to pain, Left Elbow ROM intact - Left Elbow has soft tissue swelling over the olecranon - Left knee warm compared to right; Left and Right Knee ROM intact b/l, Muscle strength 5/5 Laboratory Results - last 24 hr 01/16/18 01/16/18 01/16/18 18:30 18:30 18:30 WBC 17.7 H RBC 4.69 Hgb 13.5 Hct 41.0 MCV 87.6 MCH 28.8 MCHC 32.8 RDW 15.9 Plt Count 343 MPV 7.6 Absolute Neuts (auto) 15.1 H Neutrophils % 85.1 H Lymphocytes % 5.8 L D Monocytes % 8.3 Eosinophils % 0.1 D Basophils % 0.7 D Nucleated RBC % 0 ESR PT with INR 13.10 H INR 1.16 H PTT (Actin FS) 29.0 VBG pH POC VBG pCO2 POC VBG pO2 Mixed VBG HCO3 Sodium 137 Potassium 3.9 Chloride 99 Carbon Dioxide 25 Anion Gap 13 BUN 17 Creatinine 1.1 Creat Clearance w eGFR > 60 Random Glucose 90 Lactic Acid Uric Acid Calcium 9.6 Total Bilirubin 1.2 H AST 23 ALT 40 Alkaline Phosphatase 143 H Troponin I C-Reactive Protein Total Protein 7.9 Albumin 3.6 Urine Color Urine Appearance Urine pH Ur Specific [place] Urine Protein Urine Glucose (UA) Urine Ketones Urine Blood Urine Nitrite Urine Bilirubin Urine Urobilinogen Ur Leukocyte Esterase Urine WBC (Auto) Urine RBC (Auto) Ur Epithelial Cells Urine Mucus 01/16/18 01/16/18 01/16/18 18:30 18:30 18:30 WBC RBC Hgb Hct MCV MCH MCHC RDW Plt Count MPV Absolute Neuts (auto) Neutrophils % Lymphocytes % Monocytes % Eosinophils % Basophils % Nucleated RBC % ESR PT with INR INR PTT (Actin FS) VBG pH POC VBG pCO2 POC VBG pO2 Mixed VBG HCO3 Sodium Potassium Chloride Carbon Dioxide Anion Gap BUN Creatinine Creat Clearance w eGFR Random Glucose Lactic Acid 2.0 Uric Acid 7.3 H Calcium Total Bilirubin AST ALT Alkaline Phosphatase Troponin I 0.13 H C-Reactive Protein 25.5 H Total Protein Albumin Urine Color Urine Appearance Urine pH Ur Specific [place] Urine Protein Urine Glucose (UA) Urine Ketones Urine Blood Urine Nitrite Urine Bilirubin Urine Urobilinogen Ur Leukocyte Esterase Urine WBC (Auto) Urine RBC (Auto) Ur Epithelial Cells Urine Mucus 01/16/18 01/16/18 01/16/18 18:30 18:45 19:10 WBC RBC Hgb Hct MCV MCH MCHC RDW Plt Count MPV Absolute Neuts (auto) Neutrophils % Lymphocytes % Monocytes % Eosinophils % Basophils % Nucleated RBC % ESR 75 H PT with INR INR PTT (Actin FS) VBG pH 7.42 POC VBG pCO2 38.8 POC VBG pO2 45.3 D Mixed VBG HCO3 24.4 Sodium Potassium Chloride Carbon Dioxide Anion Gap BUN Creatinine Creat Clearance w eGFR Random Glucose Lactic Acid Uric Acid Calcium Total Bilirubin AST ALT Alkaline Phosphatase Troponin I C-Reactive Protein Total Protein Albumin Urine Color Yellow Urine Appearance Clear Urine pH 5.0 Ur Specific [place] 1.015 Urine Protein Negative Urine Glucose (UA) Negative Urine Ketones Negative Urine Blood 1+ H Urine Nitrite Negative Urine Bilirubin Negative Urine Urobilinogen Negative Ur Leukocyte Esterase Negative Urine WBC (Auto) 1 Urine RBC (Auto) 2 Ur Epithelial Cells Rare Urine Mucus Rare ASSESSMENT/PLAN: 57 y/o M with PMHx of Gout, HTN, HLD, T2DM presents with Right 5th digit, Right Elbow, Right Knee and Left Elbow pain, swelling and mild to moderate erythema since Sunday. He was febrile 101.8, HR 146 with RUE abnormalities noted above. He had a WBC 17.7, ESR 75, CRP 25.5, Uric acid 7.3, and Troponn 0.13. 1. SIRS - Likely due to inflammatory arthritis involving multiple joints, likely gout due to noncompliance with medication - TMax 102.8, HR 146, WBC 17.7 - Blood and Urine Cx pending - CXR pending official read - Started Ceftriaxone 2g in ED, Add vanco 1gm - ID (Dr. Heard) consulted 2. Acute Gout flare - Clinically improved in ED with Colchicine and Indomethacin - Official XRay read pending - Colchicine 0.6mg daily - Indomethacin 50mg daily PRN - Will hold off on steroids for now until infectious cause ruled out - Ordered Urine gonorrhoae/chlamydia Nucleic acid amplification, CARTER - Lyme serology pending - Will need to follow up Rheum outpatient - Orthopedic Surgery (Dr. Silva) consulted to r/o septic arthritis, evaluate for gouty crystals - Consider Rheumatology consult 3. Troponemia - Baseline 0.9-0.11, likely chronic - Patient currently not complaining of Chest Pain, SOB - Admission EKG shows sinus tachycardia, unchanged from previous 4. DM - BGMs, ISS ACHS - Hold home dose metformin 5. HTN - Will continue Amlodipine once meds verified 6. FEN - PO FLuids - Lytes WNL - Diabetic, Low cholesterol, Low sodium diet 7. PPx - DVT: Heparin TID Dispo: Observe on Med-Surg, will need Med rec Visit type - Emergency Visit Emergency Visit: Yes ED Registration Date: 01/17/18 Care time: The patient presented to the Emergency Department on the above date and was hospitalized for further evaluation of their emergent condition. - New Patient This patient is new to me today: Yes Date on this admission: 01/17/18 - Critical Care Critical Care patient: No Hospitalist Screening - Colonoscopy Questionnaire Colonoscopy Questionnaire: Colonoscopy Questionnaire - Patient: 50 - 75 years old and never had a screening colonoscopy: Unknown History of colon or rectal polyps, or CA: Unknown History of IBD, Crohn's disease or UC: Unknown History of abdominal radiation therapy as a child: Unknown - Relative: 1 with colon or rectal CA, or polyps at age 60 or younger: Unknown Colon or rectal CA diagnosed at age 45 or younger: Unknown Multiple relatives with colon or rectal CA: Unknown - Outcome: Screening Result: Negative Screen
[2018-01-17] MEDS ORDERED: VANCOMYCIN 1,000 MG in DEXTROSE 5%-WATER - 250 ML IVPB ONE (05:10)
[2018-01-17] MEDS ORDERED: INDOMETHACIN 50 MG CAPSULE PO PRN ×2 (05:11→14:34)
[2018-01-17] MEDS ORDERED: HEPARIN NA (PORCINE) 5,000 UNITS/ML 1ML VIAL ONE (05:25)
[2018-01-17] MEDS ORDERED: VANCOMYCIN 1 GRAM (PRE-DOCKED) 1,000 MG/250 ML BAG IVPB ONE (05:25)
--- NOTE | 2018-01-17 05:40 | PN ---
Teaching Attending Note Name of Resident: Estefany Quigley ATTENDING PHYSICIAN STATEMENT I saw and evaluated the patient. Chart, data, imaging reviewed. I reviewed the resident's note and discussed the case with the resident. I agree with the resident's findings and plan as documented. SUBJECTIVE: 57 y/o M with PMHx of Gout HTN, HLD, T2DM presents with Right hand, Right Elbow , Right Knee and Left Elbow pain, swelling and mild to moderate erythema since Sunday, associated with decreased ROM. Patient was recently discharged from inpatient this past October for Gout flair. He was discharged on colchicine but did not take due to cost reasons. Pt denied thiazide diuretics, etoh abuse. He presented febrile of up to 102.8F and tachycardic. He responded clinically to indomethacine, colchicinem and ceftriaxone in ER. OBJECTIVE: Last Vital Signs Temp Pulse Resp BP Pulse Ox 98.4 F 88 18 114/66 94 L 01/17/18 02:10 01/17/18 02:10 01/17/18 02:10 01/17/18 02:10 01/17/18 02:10 General -appears nontoxic, aaox3 heent atraumatic, no sinus tenderness neck supple cv - s1+S2+rrr chest clear abdomen soft, bs+, nt MSK- Right hand soft tissue swelling, decreased ROM in fingers, Right Elbow, Right Knee and Left Elbow tender, erythematous, warm, decreased ROM Abnormal Lab Results 01/16/18 01/16/18 01/16/18 18:30 18:30 18:30 WBC 17.7 H Absolute Neuts (auto) 15.1 H Neutrophils % 85.1 H Lymphocytes % 5.8 L D ESR PT with INR 13.10 H INR 1.16 H Uric Acid Total Bilirubin 1.2 H Alkaline Phosphatase 143 H Troponin I C-Reactive Protein Urine Blood 01/16/18 01/16/18 01/16/18 18:30 18:30 18:30 WBC Absolute Neuts (auto) Neutrophils % Lymphocytes % ESR 75 H PT with INR INR Uric Acid 7.3 H Total Bilirubin Alkaline Phosphatase Troponin I 0.13 H C-Reactive Protein 25.5 H Urine Blood 01/16/18 19:10 WBC Absolute Neuts (auto) Neutrophils % Lymphocytes % ESR PT with INR INR Uric Acid Total Bilirubin Alkaline Phosphatase Troponin I C-Reactive Protein Urine Blood 1+ H Imaging studies reviewed. EKG -sinus tachycardia ASSESSMENT AND PLAN: #57yo man with sepsis picture and inflammatory arthritis involving multiple joints as described above. This is likely gout exacerbation given recent gout attack and need for hospitalization and noncompliance with colchicine upon discharge. Furthermore, dramatic improvement after indomethacin and colchicine adminstration. Should r/o septic arthritis, Lyme, autoimmmune arthritis, and gonococcal arthritis. -admit to med/surg -blood cultures x2 -lyme serology -GC/chlamydia in urine -ceftriaxone and vancomcyin empirically -orthopedics consult for joint aspiration to r/o septic arthritis and evaluate for crystals -morphine IV prn for pain -f/u official xray readings -c/w colchicine -indomethacin prn -rhematology evaluation -heparin sc for dvt ppx
[2018-01-17] MEDS: HEPARIN NA (PORCINE) 5,000 UNITS/ML 1ML VIAL SQ SCH ×3 (05:45→22:19)
[2018-01-17 06:49] LABS: BASO % 0.6 % (0-2.0); EOS % 1.2 % (0-4.5); HEMATOCRIT 37.9 % (35.4-49); HEMOGLOBIN 12.7 GM/dL (11.7-16.9); LYMPH % 12.7 % (8-40); MCHC 33.4 g/dl (32.0-35.9); MEAN CELL VOLUME 86.9 fl (80-96); MONO % 12.7 % (3.8-10.2); NEUT % 72.8 % (42.8-82.8); PLATELET COUNT 271 K/MM3 (134-434); RBC 4.37 M/mm3 (4.00-5.60); WHITE BLOOD COUNT 10.7 K/mm3 (4.0-10.0)
[2018-01-17 07:11] LABS: ALBUMIN 2.9 g/dl (3.4-5.0); ALK PHOS 110 U/L (45-117); ANION GAP 8 MMOL/L (8-16); BILIRUBIN,TOTAL 0.9 mg/dL (0.2-1); BLOOD UREA NITROGEN 17 mg/dL (7-18); CALCIUM 8.8 mg/dL (8.5-10.1); CHLORIDE 107 mmol/L (98-107); CO2 26 mmol/L (21-32); CREATININE 0.8 mg/dL (0.55-1.3); GLUCOSE,RANDOM 88 mg/dL (74-106); MAGNESIUM 1.9 mg/dL (1.8-2.4); PHOSPHOROUS 3.9 mg/dL (2.5-4.9); POTASSIUM 3.6 mmol/L (3.5-5.1); SGOT/AST 13 U/L (15-37); SGPT/ALT 29 U/L (13-61); SODIUM 141 mmol/L (136-145); TOT PROT 6.3 g/dl (6.4-8.2)
[2018-01-17] MEDS: INSULIN SLIDING SCALE (NOVOLOG) 1 VIAL SQ SCH ×4 (07:30→22:18)
--- NOTE | 2018-01-17 09:57 | EKG ---
Test Reason : Blood Pressure : / mmHG Vent. Rate : 134 BPM Atrial Rate : 134 BPM P-R Int : 140 ms QRS Dur : 078 ms QT Int : 282 ms P-R-T Axes : 049 240 027 degrees QTc Int : 421 ms SINUS TACHYCARDIA RIGHT SUPERIOR AXIS DEVIATION RIGHT VENTRICULAR HYPERTROPHY ABNORMAL ECG WHEN COMPARED WITH ECG OF 22-NOV-2017 19:30, NO SIGNIFICANT CHANGE WAS FOUND Confirmed by OSITO NGUYEN MD ([id number]) on 01/17/2018 9:57:18 AM Referred By: Confirmed By:OSITO NGUYEN MD
--- NOTE | 2018-01-17 10:16 | PN ---
Progress Note (short form) - Note Progress Note: Pt seen and examined, he is well known to me. He is having his second significant flare up of an inflammatory poly arthropathy. He has a history of gout. He does not see a advanced practice nurse psychotherapist. The last episode was about 2-3 weeks ago , his recent flare up has been getting worse for about 3 day. He has no recent history of trauma, or infection. Attempted aspiration in the ER, tried to get fluid from the right hand, no fluid aspirated. Currently he has flare ups in the right hand, wrist, elbow, ankle, and both knees. This am [facility] Labs WBC decreased from 17.7 to 10.7 overnight ESR 75 Lyme titer Pending CARTER screen Pending UA increased to 7.3 CRP 25.5 Xrays Of the hands, fingers, wrists, elbows and knees are all negative for acute or obvious chronic bony pathology PE Of right elbow, wrist, hand, fingers are all hot, moderately tender, moderately swollen, moderately erythematous. The right hand is the most erythematous, most hot, most tender, most swollen. Decreased ROM secondary to swelling and pain with motion. No fluid collection anywhere to aspirate. Of right ankle and both knees are similar, but much less severe. Imp Acute gouty flare up. It is unusual, in my opinion, to involve so many joints (6) simultaneously. Rec Therefore a full rheumatological work up needs to be done, Rheum consult Anti gout and NSAID medication No surgery needed at this time Will follow
[2018-01-17] MEDS: COLCHICINE 0.6 MG TABLET (FP) PO SCH (10:29)
[2018-01-17 10:45] VITALS: BMI 33.9
[2018-01-17] MEDS ORDERED: IBUPROFEN 400 MG TABLET (FP) PO PRN (13:28)
--- NOTE | 2018-01-17 14:43 | PN ---
Teaching Attending Note Name of Resident: Claribel Luque ATTENDING PHYSICIAN STATEMENT I saw and evaluated the patient. I reviewed the resident's note and discussed the case with the resident. I agree with the resident's findings and plan as documented. SUBJECTIVE:overall improved since arrival but conitnues to have significant pain in all the large joints especially the R wrist and elbow. says he took colchicine as prescribed from last admission but was unable to afford the refill ($150). has appt with rheum on 02/10. denies CP, SOB, fever, chills, N/V/ c/d, no trauma or bug bites denies STD treatment in the past. only 1 sexual partners for many years OBJECTIVE: Last Vital Signs Temp Pulse Resp BP Pulse Ox 98.8 F 101 H 20 139/77 96 01/17/18 14:29 01/17/18 14:29 01/17/18 14:29 01/17/18 14:29 01/17/18 10:32 General NAD CV S1 S2 RRR no murmur/rub/gallop lungs CTA B/L no wheezing/rales/rhonchi Extremities R elbow warm and swollen, tender on movement with mild erythema limited ROM, R elbow swollen with erythematous limited ROM. non pitting edema noted of R hand. Pain and swelling of B/L knees. ROM is somewhat limited but mostly improved. R foot 1st toe swelling and tenderness L foot 2nd toe swelling not tender ASSESSMENT AND PLAN: 57yo M with PMH gout, HTN and DM presenting with polyarticular pain and swelling with similar episode a few months ago which improved with steroids and colchicine 1. Polarticular arthritis- likely gout however rare to see in so many joints at one time will also need to consider gonorrhea although low risk factors. low suspicion for septic joint. elevated uric acid. +MSU crystals on last admission. will d/c ceftriaxone. start prednisone 40mg. received colchicine 1.2 mg yesterday and will cont daily. will consult Rheum for further workup. ID and Ortho both consulted overnight. will check lyme, CARTER and GC/chlamydia 2. SIRS- Tm 102.8 with leukocytosis however no active source of infection. low risk for septic joint (only that he did have arthocentesis last admission) however his most severe looking joint appears to be the R wrist at this time and not the R knee where procedure was done. will d/c abx and monitor. ID consulted. Cx pending. 3. HTN- controlled. cont meds 4. DM- hold oral agents. BGM and iss 5. DVT ppx- hep sq 6. PT eval
--- NOTE | 2018-01-17 15:01 | PN ---
Progress Note (short form) - Note Progress Note: ID Consult dictated Probable acute flare, gouty arthritis Agree with rhematology workup, treatment for gout Observe off antibiotics HIV test (pt consents)
[2018-01-17] MEDS: predniSONE 20 MG TABLET (UD) PO SCH (15:22)
--- NOTE | 2018-01-17 16:17 | CONS ---
DATE OF CONSULTATION: 01/17/2018 HISTORY OF PRESENT ILLNESS: The patient is a 57-year-old male who was evaluated for fever, leukocytosis and polyarticular arthritis. He presented to the hospital with a three-day history of worsening right hand, elbow and knee swelling as well as left elbow and knee swelling. He reported subjective fever and chills. He was admitted to the hospital where his temperature was noted to be 102.8. His white blood cell count was 17,000. His uric acid level was sent and was elevated at 7.3. He was treated for gout. An attempt at joint aspiration was performed and was unsuccessful. The patient reports having been diagnosed with gout in July of 2017. He was hospitalized in October 2017 with an acute flare and a presentation similar to this presentation. At that time, an aspiration was performed and showed 37,000 white cells and positive crystals. The patient states he has recently been off his gout medication. He denies a history of other chronic arthritis. No history of osteoarthritis, rheumatoid arthritis or other connective tissue disorders. He denies any tick bites or rash. He denies risk factors for HIV. PAST MEDICAL HISTORY: Positive for diabetes mellitus, hypertension, hyperlipidemia, known gouty arthritis. ALLERGIES: No known allergies. LAB DATA: White count 17,000, currently 10.7, hematocrit 37.9, platelet count 271, creatinine 0.8, erythrocyte sedimentation rate 75, C-reactive protein 25. Blood cultures are pending. PHYSICAL EXAMINATION: General: He is awake and alert. He is moderate distress secondary to periarticular arthritis. Vital Signs: Temperature 98.8, T-max 102.8, blood pressure 139/77, pulse 100 and regular, respiratory rate 20 per minute. HEENT:: Sclerae anicteric. Heart: Heart sounds S1, S2. No murmur. Lungs: Clear. Abdomen: Soft. No tenderness was elicited. Extremities: Positive for swelling of all the digits of the right hand as well as the right elbow. There is left elbow swelling and bilateral knee swelling. Skin: No rashes are noted. IMPRESSION: 1. Probable acute flare of gouty arthritis. 2. Rule out underlying connective tissue disorder, although less likely. 3. Low suspicion for septic arthritis. PLAN: Agree with rheumatology workup, treatment for gout. Observe off antibiotic therapy. We will obtain HIV testing for completion. The patient gave his verbal consent. Thank you for the kind referral. HARJEET CONNELLY M.D. [id number]
--- NOTE | 2018-01-17 18:22 | PN ---
Physical Exam: SUBJECTIVE: Patient seen and examined at bedside. Patient reports improvement of joint pains. OBJECTIVE: Vital Signs Period Temp Pulse Resp BP Sys/Gomez Pulse Ox Last 24 Hr 98.1 F-101.8 F 78-101 17-20 114-142/66-89 94-98 GENERAL: The patient is awake, alert, and fully oriented, in no acute distress. HEAD: Normal with no signs of trauma. EYES: PERRLA, EOMI, sclera anicteric, conjunctiva clear. ENT: Ears normal, nares patent, oropharynx clear without exudates, moist mucous membranes. NECK: Trachea midline, full range of motion, supple. LUNGS: Breath sounds equal, clear to auscultation bilaterally. HEART: Regular rate and rhythm, S1, S2 without murmur, rub or gallop. ABDOMEN: Soft, nontender, nondistended, normoactive bowel sounds. EXTREMITIES: 2+ pulses, warm, well-perfused, no edema. sensation intact. Motor 5 /5. UE: +warmth, tenderness, swelllng and erythema of the R elbow, limited PROM and AROM due to pain. +swelling of the R hand, limited ROM of wrist and fingers. LE: +swelling and tenderness of b/l knees, ROM limited due to pain. NEUROLOGICAL: Cranial nerves II through XII grossly intact. Normal speech, gait not observed. PSYCH: Normal mood, normal affect. SKIN: Warm, dry, normal turgor, no rashes or lesions noted Laboratory Results - last 24 hr 01/16/18 01/16/18 01/16/18 18:30 18:30 18:30 WBC 17.7 H RBC 4.69 Hgb 13.5 Hct 41.0 MCV 87.6 MCH 28.8 MCHC 32.8 RDW 15.9 Plt Count 343 MPV 7.6 Absolute Neuts (auto) 15.1 H Neutrophils % 85.1 H Lymphocytes % 5.8 L D Monocytes % 8.3 Eosinophils % 0.1 D Basophils % 0.7 D Nucleated RBC % 0 ESR PT with INR 13.10 H INR 1.16 H PTT (Actin FS) 29.0 VBG pH POC VBG pCO2 POC VBG pO2 Mixed VBG HCO3 Sodium 137 Potassium 3.9 Chloride 99 Carbon Dioxide 25 Anion Gap 13 BUN 17 Creatinine 1.1 Creat Clearance w eGFR > 60 POC Glucometer Random Glucose 90 Lactic Acid Uric Acid Calcium 9.6 Phosphorus Magnesium Total Bilirubin 1.2 H AST 23 ALT 40 Alkaline Phosphatase 143 H Troponin I C-Reactive Protein Total Protein 7.9 Albumin 3.6 Urine Color Urine Appearance Urine pH Ur Specific [place] Urine Protein Urine Glucose (UA) Urine Ketones Urine Blood Urine Nitrite Urine Bilirubin Urine Urobilinogen Ur Leukocyte Esterase Urine WBC (Auto) Urine RBC (Auto) Ur Epithelial Cells Urine Mucus 01/16/18 01/16/18 01/16/18 18:30 18:30 18:30 WBC RBC Hgb Hct MCV MCH MCHC RDW Plt Count MPV Absolute Neuts (auto) Neutrophils % Lymphocytes % Monocytes % Eosinophils % Basophils % Nucleated RBC % ESR PT with INR INR PTT (Actin FS) VBG pH POC VBG pCO2 POC VBG pO2 Mixed VBG HCO3 Sodium Potassium Chloride Carbon Dioxide Anion Gap BUN Creatinine Creat Clearance w eGFR POC Glucometer Random Glucose Lactic Acid 2.0 Uric Acid 7.3 H Calcium Phosphorus Magnesium Total Bilirubin AST ALT Alkaline Phosphatase Troponin I 0.13 H C-Reactive Protein 25.5 H Total Protein Albumin Urine Color Urine Appearance Urine pH Ur Specific [place] Urine Protein Urine Glucose (UA) Urine Ketones Urine Blood Urine Nitrite Urine Bilirubin Urine Urobilinogen Ur Leukocyte Esterase Urine WBC (Auto) Urine RBC (Auto) Ur Epithelial Cells Urine Mucus 01/16/18 01/16/18 01/16/18 18:30 18:45 19:10 WBC RBC Hgb Hct MCV MCH MCHC RDW Plt Count MPV Absolute Neuts (auto) Neutrophils % Lymphocytes % Monocytes % Eosinophils % Basophils % Nucleated RBC % ESR 75 H PT with INR INR PTT (Actin FS) VBG pH 7.42 POC VBG pCO2 38.8 POC VBG pO2 45.3 D Mixed VBG HCO3 24.4 Sodium Potassium Chloride Carbon Dioxide Anion Gap BUN Creatinine Creat Clearance w eGFR POC Glucometer Random Glucose Lactic Acid Uric Acid Calcium Phosphorus Magnesium Total Bilirubin AST ALT Alkaline Phosphatase Troponin I C-Reactive Protein Total Protein Albumin Urine Color Yellow Urine Appearance Clear Urine pH 5.0 Ur Specific [place] 1.015 Urine Protein Negative Urine Glucose (UA) Negative Urine Ketones Negative Urine Blood 1+ H Urine Nitrite Negative Urine Bilirubin Negative Urine Urobilinogen Negative Ur Leukocyte Esterase Negative Urine WBC (Auto) 1 Urine RBC (Auto) 2 Ur Epithelial Cells Rare Urine Mucus Rare 01/17/18 01/17/18 01/17/18 06:20 06:20 11:06 WBC 10.7 H RBC 4.37 Hgb 12.7 Hct 37.9 MCV 86.9 MCH 29.0 MCHC 33.4 RDW 16.0 H Plt Count 271 D MPV 7.0 L Absolute Neuts (auto) 7.8 Neutrophils % 72.8 Lymphocytes % 12.7 D Monocytes % 12.7 H Eosinophils % 1.2 D Basophils % 0.6 Nucleated RBC % 0 ESR PT with INR INR PTT (Actin FS) VBG pH POC VBG pCO2 POC VBG pO2 Mixed VBG HCO3 Sodium 141 Potassium 3.6 Chloride 107 Carbon Dioxide 26 Anion Gap 8 BUN 17 Creatinine 0.8 Creat Clearance w eGFR > 60 POC Glucometer 100 Random Glucose 88 Lactic Acid Uric Acid Calcium 8.8 Phosphorus 3.9 Magnesium 1.9 Total Bilirubin 0.9 AST 13 L ALT 29 Alkaline Phosphatase 110 Troponin I C-Reactive Protein Total Protein 6.3 L Albumin 2.9 L Urine Color Urine Appearance Urine pH Ur Specific [place] Urine Protein Urine Glucose (UA) Urine Ketones Urine Blood Urine Nitrite Urine Bilirubin Urine Urobilinogen Ur Leukocyte Esterase Urine WBC (Auto) Urine RBC (Auto) Ur Epithelial Cells Urine Mucus 01/17/18 16:34 WBC RBC Hgb Hct MCV MCH MCHC RDW Plt Count MPV Absolute Neuts (auto) Neutrophils % Lymphocytes % Monocytes % Eosinophils % Basophils % Nucleated RBC % ESR PT with INR INR PTT (Actin FS) VBG pH POC VBG pCO2 POC VBG pO2 Mixed VBG HCO3 Sodium Potassium Chloride Carbon Dioxide Anion Gap BUN Creatinine Creat Clearance w eGFR POC Glucometer 92 Random Glucose Lactic Acid Uric Acid Calcium Phosphorus Magnesium Total Bilirubin AST ALT Alkaline Phosphatase Troponin I C-Reactive Protein Total Protein Albumin Urine Color Urine Appearance Urine pH Ur Specific [place] Urine Protein Urine Glucose (UA) Urine Ketones Urine Blood Urine Nitrite Urine Bilirubin Urine Urobilinogen Ur Leukocyte Esterase Urine WBC (Auto) Urine RBC (Auto) Ur Epithelial Cells Urine Mucus Active Medications Generic Name Dose Route Start Last Admin Trade Name Freq PRN Reason Stop Dose Admin Colchicine 0.6 mg 01/17/18 10:00 01/17/18 10:29 Colcrys - PO 0.6 mg DAILY BLACK Administration Heparin Sodium (Porcine) 5,000 unit 01/17/18 06:00 01/17/18 13:10 Heparin - SQ 5,000 unit TID BLACK Administration Indomethacin 50 mg 01/17/18 14:34 Indocin - PO Q8H PRN PAIN LEVEL 7 - 10 Insulin Aspart 1 vial 01/17/18 07:00 01/17/18 16:35 Novolog Vial Sliding Scale - SQ Not Given ACHS [facility] Protocol Prednisone 40 mg 01/17/18 14:45 01/17/18 15:22 Deltasone - PO 40 mg DAILY BLACK Administration Imaging R elbow xray - Abnormal appearance of the soft tissues surrounding the olecranon , subcutaneous emphysema is observed, dystrophic calcification versus periosteal elevation with disruption of the underlying bone noted, marker regional swelling is seen inflammatory versus infectious etiologies to be excluded, avulsion with fracture of olecranon spur with displacement into bursa are additional considerations. R hand xray - Significant abnormality localized to the right fifth middle interphalangeal joint juxta articular suchondral erosion of the distal end of the right fifth proximal phalanx with extension to the articular margin and avulsion of the subchondral fragment into the adjacent soft tissues. No obvious calcified tophi however a broad differential diagnosis for an inflammatory process such as gout, osteomyelitis or sequela of fracture with superimposed infection. L elbow xray - 3 views of the left elbow reveal soft tissue swelling with some soft tissue calcifications which most likely represents a bursitis. There is no sign of fracture of subluxation and no sign of blastic or lytic changes. R knee xray - Mild degenerative changes with small suprapatellar effusion, no fracture or subluxation, no bony lesion ASSESSMENT/PLAN: 57 y/o M with PMHx of Gout, HTN, HLD, T2DM presents with polyarticular pain, swelling and redness since 2 days ago. Patient was previously seen a few months ago with the same symptoms, where synovial fluid aspiration of knee joint revealed MSU crystals. He was febrile 101.8, HR 146 with RUE abnormalities noted above. He had a WBC 17.7, ESR 75, CRP 25.5, Uric acid 7.3, and Troponin 0.13. #Acute Gout flare - ESR 75, CRP 25.5, Uric acid 7.3 - Clinically improved in ED with Colchicine and Indomethacin - Colchicine 0.6mg daily - Indomethacin 50mg q8h PRN - Started Prednisone 40mg PO daily. - Urine gonorrhoae/chlamydia Nucleic acid amplification, CARTER - Lyme serology pending. - HIV test ordered. - Scheduled for appointment with rheumatology on 02/10. - Rheumatology consulted. - PT evaluation. - R elbow xray - Abnormal appearance of the soft tissues surrounding the olecranon, subcutaneous emphysema is observed, dystrophic calcification versus periosteal elevation with disruption of the underlying bone noted, marker regional swelling is seen inflammatory versus infectious etiologies to be excluded, avulsion with fracture of olecranon spur with displacement into bursa are additional considerations. - R hand xray - Significant abnormality localized to the right fifth middle interphalangeal joint juxta articular suchondral erosion of the distal end of the right fifth proximal phalanx with extension to the articular margin and avulsion of the subchondral fragment into the adjacent soft tissues. No obvious calcified tophi however a broad differential diagnosis for an inflammatory process such as gout, osteomyelitis or sequela of fracture with superimposed infection. - L elbow xray - 3 views of the left elbow reveal soft tissue swelling with some soft tissue calcifications which most likely represents a bursitis. There is no sign of fracture of subluxation and no sign of blastic or lytic changes. - R knee xray - Mild degenerative changes with small suprapatellar effusion, no fracture or subluxation, no bony lesion #SIRS: likely 2/2 acute gout, rule out septic arthritis - presented at the ED with TMax 102.8, HR 146, WBC 17.7 - Fever since has resolved, HR wnl, WBC 10.7 - Blood and Urine Cx pending - Discontinue antibiotics Ceftriaxone and Vancomycin - Will monitor while off antibiotics - ID (Dr. Hutson) consulted. Recommendations appreciated. - Ortho (Dr. Silva) consulted. Recommendations appreciated. #Acute Gout flare - Clinically improved in ED with Colchicine and Indomethacin - Official XRay read pending - Colchicine 0.6mg daily - Indomethacin 50mg daily PRN - Will hold off on steroids for now until infectious cause ruled out - Ordered Urine gonorrhoae/chlamydia Nucleic acid amplification, CARTER - Lyme serology pending - Will need to follow up Rheum outpatient - Orthopedic Surgery (Dr. Silva) consulted to r/o septic arthritis, evaluate for gouty crystals - Consider Rheumatology consult #Troponemia - Baseline 0.9-0.11, likely chronic - Patient currently not complaining of Chest Pain, SOB #DM - BGMs, ISS ACHS - Hold home dose metformin #HTN - Will continue Amlodipine once meds verified #FEN - not on any standing fluids - Encouraged to increase oral fluid intake - Lytes WNL - Diabetic, Low cholesterol, Low sodium diet #Prophylaxis - Heparin 5000 units sq tid #Disposition - Observe on Med-Surg Visit type - Emergency Visit Emergency Visit: Yes ED Registration Date: 01/17/18 Care time: The patient presented to the Emergency Department on the above date and was hospitalized for further evaluation of their emergent condition. - New Patient This patient is new to me today: Yes Date on this admission: 01/17/18 - Critical Care Critical Care patient: No
[2018-01-17] MEDS ORDERED: INSULIN (NOVOLOG) ASPART 100 UNITS/ML 10ML VIAL ONE (20:46)
[2018-01-18] MEDS ORDERED: CEFTRIAXONE 2 GM in DEXTROSE 5%-WATER 100 ML IVPB SCH (02:00)
[2018-01-18] MEDS: INSULIN SLIDING SCALE (NOVOLOG) 1 VIAL SQ SCH ×4 (06:20→22:23)
[2018-01-18] MEDS: HEPARIN NA (PORCINE) 5,000 UNITS/ML 1ML VIAL SQ SCH ×3 (06:21→22:22)
[2018-01-18 07:22] LABS: BASO % 0.2 % (0-2.0); EOS % 0.3 % (0-4.5); HEMATOCRIT 36.6 % (35.4-49); HEMOGLOBIN 12.2 GM/dL (11.7-16.9); LYMPH % 12.9 % (8-40); MCH 28.8 pg (25.7-33.7); MCHC 33.3 g/dl (32.0-35.9); MEAN CELL VOLUME 86.4 fl (80-96); MEAN PLT VOLUME 7.1 fl (7.5-11.1); MONO % 7.9 % (3.8-10.2); NEUT % 78.7 % (42.8-82.8); PLATELET COUNT 308 K/MM3 (134-434); RBC 4.23 M/mm3 (4.00-5.60); RDW 15.4 % (11.9-15.9); WHITE BLOOD COUNT 9.9 K/mm3 (4.0-10.0)
[2018-01-18 07:48] LABS: ANION GAP 5 MMOL/L (8-16); BLOOD UREA NITROGEN 19 mg/dL (7-18); CALCIUM 8.6 mg/dL (8.5-10.1); CHLORIDE 104 mmol/L (98-107); CO2 27 mmol/L (21-32); CREATININE 0.8 mg/dL (0.55-1.3); GLUCOSE,RANDOM 115 mg/dL (74-106); POTASSIUM 4.2 mmol/L (3.5-5.1); SODIUM 137 mmol/L (136-145)
--- NOTE | 2018-01-18 08:27 | PN ---
Progress Note (short form) - Note Progress Note: Ortho Pt seen and examined- feeling much better Selected Entries 01/18/18 08:16 Temperature 98 F Pulse Rate 82 Respiratory 18 Rate Blood Pressure 132/75 Laboratory Tests 01/18/18 06:00 WBC 9.9 Hgb 12.2 Hct 36.6 Plt Count 308 decr swelling and erythema, decr pain, incr rom nvi a/p continue anti-gout meds ROM exercises Rheumatology consult Orthopedically stable reconsult prn d/w Dr. Henderson
[2018-01-18] MEDS: predniSONE 20 MG TABLET (UD) PO SCH (09:18)
[2018-01-18] MEDS: COLCHICINE 0.6 MG TABLET (FP) PO SCH (09:18)
[2018-01-18] MEDS: ERYTHROMYCIN 0.5% OPHTHALMIC OINTMENT 3.5 GM TUBE OS SCH (09:18)
[2018-01-18] MEDS: amLODIPine BESYLATE 10 MG TABLET (FP) PO SCH (09:19)
[2018-01-18 09:28] LABS: URIC ACID 7.9 mg/dL (2.6-7.2)
[2018-01-18] MEDS ORDERED: INDOMETHACIN 50 MG CAPSULE PO PRN (09:29)
--- NOTE | 2018-01-18 12:52 | CONSULT ---
Consult Consult Specialty:: Rheumatology - History of Present Illness History of Present Illness: 57 y/o M with PMHx of Gout, HTN, HLD, DM type II, admitted with acute arthritis in multiple joints. HPI. One year ago the patient developed acute arthritis in the right knee which resolved after 2 days. On June of this year he had severeal episodes of acute arthritis involving knees, ankles and developed bursotos in the left olecranon. O On October he had a new episoode of atrhritis and as started on Colchicine 0.6 mg/fd and low purine diet. He remaiin asymptomatic until 5 dqys agop when he developed acute arthritis in hands and knees. There was no obvious triggering factor. The patient denies relevant family history. On admission laboratory work-up revealed ESR 75, creatinine 0.8 and uric acid 7.3. The patient was startedon Indomethacin 50 mg TID and Prednisone 40 mg/d. Since admission he improved significantly. - History Source History Provided By: Patient Limitations to Obtaining History: No Limitations - Past Medical History Cardio/Vascular: Yes: HTN, Hyperlipdemia Endocrine: Yes: Diabetes Mellitus - Alcohol/Substance Use Hx Alcohol Use: No - Smoking History Smoking history: Never smoked Have you smoked in the past 12 months: No Aproximately how many cigarettes per day: 0 Home Medications - Allergies Allergies/Adverse Reactions: Allergies Allergy/AdvReac Type Severity Reaction Status Date / Time No Known Allergies Allergy Verified 01/16/18 17:10 - Home Medications Home Medications: Ambulatory Orders Amlodipine Besylate 10 mg PO DAILY #30 tablet 11/24/17 Cane 1 each ASDIR #1 each 11/24/17 Colchicine 0.6 tab PO DAILY #30 tablet 11/24/17 Erythromycin 0.5% Eye Ointment [Erythromycin 0.5% Eye Ointment -] 1 applic OS DAILY #1 tube 11/24/17 Metformin HCl [Glucophage] 1,000 mg PO DAILY #30 tablet 11/24/17 Prednisone See Taper PO DAILY #12 tablet 11/24/17 Allopurinol [Zyloprim -] 100 mg PO DAILY #7 tab 01/18/18 Allopurinol [Zyloprim -] 200 mg PO DAILY #30 tablet 01/18/18 Family Disease History - Family Disease History Other Family History: No family history of gout Review of Systems - Review of Systems Constitutional: reports: Malaise Eyes: reports: No Symptoms HENT: reports: No Symptoms Neck: reports: No Symptoms Cardiovascular: reports: No Symptoms Respiratory: reports: No Symptoms Gastrointestinal: reports: No Symptoms Musculoskeletal: reports: Other (See HPI) Neurological: reports: No Symptoms Physical Exam Vital Signs: Vital Signs Temperature 98 F 01/18/18 08:16 Pulse Rate 82 01/18/18 08:16 Respiratory Rate 18 01/18/18 09:00 Blood Pressure 132/75 01/18/18 08:16 O2 Sat by Pulse Oximetry (%) 97 01/18/18 09:00 Constitutional: Yes: Moderate Distress Eyes: Yes: WNL HENT: Yes: WNL Neck: Yes: WNL Cardiovascular: Yes: WNL Respiratory: Yes: WNL Gastrointestinal: Yes: WNL Musculoskeletal: Yes: Other (Swelling of both wrists, MCPs: 2nd and 5th in the right hand and 5th in the left. Both knees were swollen Tophi in left olecranon bursa.) Labs: CBC, BMP 01/18/18 06:00 01/18/18 06:30 Laboratory Tests 01/16/18 01/16/18 01/18/18 18:30 19:10 06:30 ESR 75 H Uric Acid 7.9 H Urine Color Yellow Urine Appearance Clear Urine pH 5.0 Ur Specific [place] 1.015 Urine Protein Negative Urine Glucose (UA) Negative Urine Ketones Negative Urine Blood 1+ H Urine Nitrite Negative Urine Bilirubin Negative Urine Urobilinogen Negative Ur Leukocyte Esterase Negative Urine WBC (Auto) 1 Urine RBC (Auto) 2 Problem List - Problems (1) Gout, joint Assessment/Plan: Polyarticular gouty arthritis. Plan: As the patient has normal renal fucntion I suggest to increase Indomethacin to 50 mg QID for 2 more days and discontinue Prednisone. Continue Colchicine 0.6 mg/d, In 4 days start Allopurinol 100 mg/d to be increased after 1 week to 200 mg/d. The patient has an appointment with a rheumatology clinic early January. Code(s): M10.9 - GOUT, UNSPECIFIED
--- NOTE | 2018-01-18 13:13 | PN ---
Teaching Attending Note Name of Resident: Claribel Luque ATTENDING PHYSICIAN STATEMENT I saw and evaluated the patient. I reviewed the resident's note and discussed the case with the resident. I agree with the resident's findings and plan as documented. SUBJECTIVE: pain has improved. some difficulty ambulating. denies Cp, SOB, fever , chills, OBJECTIVE: Last Vital Signs Temp Pulse Resp BP Pulse Ox 98 F 82 18 132/75 97 01/18/18 08:16 01/18/18 08:16 01/18/18 09:00 01/18/18 08:16 01/18/18 09:00 General NAD Extremities R hand wrist swelling improved. increased mobility. ASSESSMENT AND PLAN: 57yo M with PMH gout, HTN and DM presenting with polyarticular pain and swelling with similar episode a few months ago which improved with steroids and colchicine 1. Polarticular arthritis- likely gout however rare to see in so many joints at one time will also need to consider gonorrhea although low risk factors. clinically improved. cont colchicine and NSAIDS. will d/c steroids per rheum. will need to conitnue colchicine x5 days then can transition to allpurinol and f /u in office as outaptient. 2. SIRS- afebrile. leukocytosis resolved. would cont to hold abx. Cx negative. 3. HTN- controlled. cont meds 4. DM- hold oral agents. BGM and iss 5. DVT ppx- hep sq 6. clinically improve but continues to have reduced mobility due to pain. would monitor and anticipate d/c in next 24H
--- NOTE | 2018-01-18 14:27 | PN ---
Progress Note, Physician History of Present Illness: Clinically improved Joint swelling much improved Afebrile WBC WNL BC (-) Uric acid 7.9 - Current Medication List Current Medications: Active Medications Amlodipine Besylate (Norvasc -) 10 mg PO DAILY [facility] Last Admin: 01/18/18 09:19 Dose: 10 mg Colchicine (Colcrys -) 0.6 mg PO DAILY [facility] Last Admin: 01/18/18 09:18 Dose: 0.6 mg Erythromycin (Erythromycin 0.5% Eye Ointment) 1 applic OS DAILY [facility] Last Admin: 01/18/18 09:18 Dose: 1 applic Heparin Sodium (Porcine) (Heparin -) 5,000 unit SQ TID [facility] Last Admin: 01/18/18 13:24 Dose: 5,000 unit Indomethacin (Indocin -) 50 mg PO QID PRN PRN Reason: PAIN LEVEL 7 - 10 Last Admin: 01/18/18 13:25 Dose: 50 mg Insulin Aspart (Novolog Vial Sliding Scale -) 1 vial SQ ACHS [facility]; Protocol Last Admin: 01/18/18 11:08 Dose: Not Given - Objective Vital Signs: Vital Signs Temperature 98 F 01/18/18 08:16 Pulse Rate 82 01/18/18 08:16 Respiratory Rate 18 01/18/18 09:00 Blood Pressure 132/75 01/18/18 08:16 O2 Sat by Pulse Oximetry (%) 97 01/18/18 09:00 Constitutional: Yes: No Distress Cardiovascular: Yes: Regular Rate and Rhythm, S1, S2 Respiratory: Yes: CTA Bilaterally Extremities: Yes: Other (R hand joint swelling/ elbow/ knee swelling much improved) Labs: CBC, BMP 01/18/18 06:00 01/18/18 06:30 INR, PTT INR 1.16 (0.83-1.09) H 01/16/18 18:30 Assessment/Plan Acute flare, gouty arthritis improved on therapy Observe off antibiotics
[2018-01-18] MEDS: INDOMETHACIN 50 MG CAPSULE PO SCH ×2 (17:00→22:22)
--- NOTE | 2018-01-18 17:43 | PN ---
Physical Exam: SUBJECTIVE: Patient seen and examined at bedside this morning. Patient reported improvement of pain and swelling of the joints. No acute events overnight. OBJECTIVE: Vital Signs Period Temp Pulse Resp BP Sys/Gomez Pulse Ox Last 24 Hr 97.8 F-99.1 F 82-106 18-20 102-138/62-80 95-97 GENERAL: The patient is awake, alert, and fully oriented, in no acute distress. HEAD: Normal with no signs of trauma. EYES: PERRLA, EOMI, sclera anicteric, conjunctiva clear. ENT: Ears normal, nares patent, oropharynx clear without exudates, moist mucous membranes. NECK: Trachea midline, full range of motion, supple. LUNGS: Breath sounds equal, clear to auscultation bilaterally. HEART: Regular rate and rhythm, S1, S2 without murmur, rub or gallop. ABDOMEN: Soft, nontender, nondistended, normoactive bowel sounds. EXTREMITIES: 2+ pulses, warm, well-perfused, no edema. sensation intact. Motor 5 /5. UE: R elbow swelling and erythema resolved, improved PROM and AROM. +swelling of the R hand, limited ROM of wrist and fingers. LE: +swelling and tenderness of b/l knees, ROM limited due to pain but improved. NEUROLOGICAL: Cranial nerves II through XII grossly intact. Normal speech, gait not observed. PSYCH: Normal mood, normal affect. SKIN: Warm, dry, normal turgor, no rashes or lesions noted Laboratory Results - last 24 hr 01/16/18 01/17/18 01/18/18 18:30 22:17 06:00 WBC 9.9 RBC 4.23 Hgb 12.2 Hct 36.6 MCV 86.4 MCH 28.8 MCHC 33.3 RDW 15.4 Plt Count 308 MPV 7.1 L Absolute Neuts (auto) 7.8 Neutrophils % 78.7 Lymphocytes % 12.9 Monocytes % 7.9 Eosinophils % 0.3 Basophils % 0.2 Nucleated RBC % 0 Sodium Potassium Chloride Carbon Dioxide Anion Gap BUN Creatinine Creat Clearance w eGFR POC Glucometer 147 Random Glucose Uric Acid Calcium Lyme Screen IgG & IgM <0.91 HIV 1&2 Antibody Screen HIV P24 Antigen 01/18/18 01/18/18 01/18/18 06:18 06:30 06:30 WBC RBC Hgb Hct MCV MCH MCHC RDW Plt Count MPV Absolute Neuts (auto) Neutrophils % Lymphocytes % Monocytes % Eosinophils % Basophils % Nucleated RBC % Sodium 137 Potassium 4.2 Chloride 104 Carbon Dioxide 27 Anion Gap 5 L BUN 19 H Creatinine 0.8 Creat Clearance w eGFR > 60 POC Glucometer 107 Random Glucose 115 H Uric Acid 7.9 H Calcium 8.6 Lyme Screen IgG & IgM HIV 1&2 Antibody Screen Negative HIV P24 Antigen Negative 01/18/18 01/18/18 01/18/18 06:30 11:06 16:51 WBC RBC Hgb Hct MCV MCH MCHC RDW Plt Count MPV Absolute Neuts (auto) Neutrophils % Lymphocytes % Monocytes % Eosinophils % Basophils % Nucleated RBC % Sodium Potassium Chloride Carbon Dioxide Anion Gap BUN Creatinine Creat Clearance w eGFR POC Glucometer 105 177 Random Glucose Uric Acid Cancelled Calcium Lyme Screen IgG & IgM HIV 1&2 Antibody Screen HIV P24 Antigen Active Medications Generic Name Dose Route Start Last Admin Trade Name Freq PRN Reason Stop Dose Admin Amlodipine Besylate 10 mg 01/18/18 10:00 01/18/18 09:19 Norvasc - PO 10 mg DAILY BLACK Administration Colchicine 0.6 mg 01/17/18 10:00 01/18/18 09:18 Colcrys - PO 0.6 mg DAILY BLACK Administration Erythromycin 1 applic 01/18/18 10:00 01/18/18 09:18 Erythromycin 0.5% Eye Ointment OS 1 applic DAILY BLACK Administration Heparin Sodium (Porcine) 5,000 unit 01/17/18 06:00 01/18/18 13:24 Heparin - SQ 5,000 unit TID BLACK Administration Indomethacin 50 mg 01/18/18 18:00 01/18/18 17:00 Indocin - PO 01/20/18 14:01 50 mg QID BLACK Administration Insulin Aspart 1 vial 01/17/18 07:00 01/18/18 16:54 Novolog Vial Sliding Scale - SQ 2 units ACHS BLACK Administration Protocol ASSESSMENT/PLAN: Imaging R elbow xray - Abnormal appearance of the soft tissues surrounding the olecranon , subcutaneous emphysema is observed, dystrophic calcification versus periosteal elevation with disruption of the underlying bone noted, marker regional swelling is seen inflammatory versus infectious etiologies to be excluded, avulsion with fracture of olecranon spur with displacement into bursa are additional considerations. R hand xray - Significant abnormality localized to the right fifth middle interphalangeal joint juxta articular suchondral erosion of the distal end of the right fifth proximal phalanx with extension to the articular margin and avulsion of the subchondral fragment into the adjacent soft tissues. No obvious calcified tophi however a broad differential diagnosis for an inflammatory process such as gout, osteomyelitis or sequela of fracture with superimposed infection. L elbow xray - 3 views of the left elbow reveal soft tissue swelling with some soft tissue calcifications which most likely represents a bursitis. There is no sign of fracture of subluxation and no sign of blastic or lytic changes. R knee xray - Mild degenerative changes with small suprapatellar effusion, no fracture or subluxation, no bony lesion ASSESSMENT/PLAN: 57 y/o M with PMHx of Gout, HTN, HLD, T2DM presents with polyarticular pain, swelling and redness since 2 days ago. Patient was previously seen a few months ago with the same symptoms, where synovial fluid aspiration of knee joint revealed MSU crystals. He was febrile 101.8, HR 146 with RUE abnormalities noted above. He had a WBC 17.7, ESR 75, CRP 25.5, Uric acid 7.3, and Troponin 0.13. #Acute Gout flare - ESR 75, CRP 25.5, Uric acid 7.3 - Clinically improved with Prednisone,Colchicine and Indomethacin - Colchicine 0.6mg daily - Indomethacin 50mg qid - Urine gonorrhoae/chlamydia Nucleic acid amplification, CARTER - Lyme serology <0.91 - HIV test nonreactive - Scheduled for appointment with rheumatology on 02/10. - Rheumatology (Dr. Retana) consulted. Recommendations appreciated. - Continue indomethacin 50 mg qid for 2 more days. - Start Allopurinol 100mg once a day for 7 days. Then 200mg once a day. - Discontinue Prednisone. - PT evaluation. #SIRS: likely 2/2 acute gout, rule out septic arthritis - presented at the ED with TMax 102.8, HR 146, WBC 17.7 - Fever since has resolved, HR wnl, WBC 10.7 - Blood and Urine Cx pending - Discontinue antibiotics Ceftriaxone and Vancomycin - Will monitor while off antibiotics - ID (Dr. Hutson) consulted. Recommendations appreciated. - Ortho (Dr. Silva) consulted. Recommendations appreciated. #Troponemia - Baseline 0.9-0.11, likely chronic - Patient currently not complaining of Chest Pain, SOB #DM - BGMs, ISS ACHS - Hold home dose metformin #HTN - Will continue Amlodipine once meds verified #FEN - not on any standing fluids - Encouraged to increase oral fluid intake - Lytes WNL - Diabetic, Low cholesterol, Low sodium diet #Prophylaxis - Heparin 5000 units sq tid #Disposition - Observe on Med-Surg - PT evaluation. Visit type - Emergency Visit Emergency Visit: Yes ED Registration Date: 01/17/18 Care time: The patient presented to the Emergency Department on the above date and was hospitalized for further evaluation of their emergent condition. - New Patient This patient is new to me today: Yes Date on this admission: 01/18/18 - Critical Care Critical Care patient: No
[2018-01-18] MEDS ORDERED: PT OWN MED DRAWER 7, Y5N ONE ×2 (22:07→22:37)
[2018-01-19] MEDS: HEPARIN NA (PORCINE) 5,000 UNITS/ML 1ML VIAL SQ SCH (05:08)
[2018-01-19] MEDS: INSULIN SLIDING SCALE (NOVOLOG) 1 VIAL SQ SCH ×2 (06:39→10:58)
[2018-01-19 08:54] VITALS: BP 140/91; PULSE 104; TEMP 98.7
[2018-01-19] MEDS: amLODIPine BESYLATE 10 MG TABLET (FP) PO SCH (09:47)
[2018-01-19] MEDS: INDOMETHACIN 50 MG CAPSULE PO SCH (09:47)
[2018-01-19] MEDS: COLCHICINE 0.6 MG TABLET (FP) PO SCH (09:47)
[2018-01-19] MEDS: ERYTHROMYCIN 0.5% OPHTHALMIC OINTMENT 3.5 GM TUBE OS SCH (10:24)
--- NOTE | 2018-01-19 11:30 | PN ---
Progress Note (short form) - Note Progress Note: swelling and erythema has resolved. mild pain on movement from the joint. denies Cp, SOB, fever, chilsl, N/V/C/D Current Medications Generic Name Dose Route Start Last Admin Trade Name Rosy PRN Reason Stop Dose Admin Amlodipine Besylate 10 mg 01/18/18 10:00 01/19/18 09:47 Norvasc - PO 10 mg DAILY BLACK Administration Colchicine 0.6 mg 01/17/18 10:00 01/19/18 09:47 Colcrys - PO 0.6 mg DAILY BLACK Administration Erythromycin 1 applic 01/18/18 10:00 01/19/18 10:24 Erythromycin 0.5% Eye Ointment OS 1 applic DAILY BLACK Administration Heparin Sodium (Porcine) 5,000 unit 01/17/18 06:00 01/19/18 05:08 Heparin - SQ 5,000 unit TID BLACK Administration Indomethacin 50 mg 01/18/18 18:00 01/19/18 09:47 Indocin - PO 01/20/18 14:01 50 mg QID BLACK Administration Insulin Aspart 1 vial 01/17/18 07:00 01/19/18 10:58 Novolog Vial Sliding Scale - SQ Not Given ACHS BLACK Protocol Last Vital Signs Temp Pulse Resp BP Pulse Ox 98.7 F 104 H 18 140/91 95 01/19/18 08:52 01/19/18 08:52 01/19/18 08:54 01/19/18 08:52 01/19/18 08:54 General NAD Extremities R hand wrist some restricted movement but no swelling appreciated. able to almost make a complete fist. no [pain or swelling of the elbow or knees ASSESSMENT AND PLAN: 57yo M with PMH gout, HTN and DM presenting with polyarticular pain and swelling with similar episode a few months ago which improved with steroids and colchicine 1. 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 cont colchicine and indomethacin for 2 more days then start allopurinol 100mg x1 week then increase to 200mg. keep appt with Dr Swain on 02/11. avoid foods assoc with gout. pt indicates he has list at home of what to avoid. explained in detail how to take medication. verbalized understanding. 2. SIRS- afebrile. leukocytosis resolved. would cont to hold abx. Cx negative. 3. HTN- controlled. cont meds 4. DM- resume oral agents. BGM and iss 5. DVT ppx- hep sq 6. d/c home. verbalized understanding of plan Visit type - Emergency Visit Emergency Visit: Yes ED Registration Date: 01/17/18 Care time: The patient presented to the Emergency Department on the above date and was hospitalized for further evaluation of their emergent condition. - New Patient This patient is new to me today: No - Critical Care Critical Care patient: No - Discharge Referral Referred to [facility] Med P.C.: No
--- NOTE | 2018-01-19 20:08 | DS ---
Physical Exam: SUBJECTIVE: See attending note for subjective and physical exam. OBJECTIVE: LABS Laboratory Results - last 24 hr 01/17/18 01/18/18 01/19/18 06:20 20:56 06:15 POC Glucometer 133 79 CARTER Screen Negative 01/19/18 10:58 POC Glucometer 95 CARTER Screen HOSPITAL COURSE: Date of Admission:01/17/18 Date of Discharge: 01/19/18 Patient is a 57 year old male with PMHx of Gout, HTN, HLD, T2DM presents with polyarticular pain, swelling and redness. Patient was previously seen a few months ago with the same symptoms, where synovial fluid aspiration of knee joint revealed MSU crystals. On admission, patient was febrile 101.8, HR 146. He had a WBC 17.7, ESR 75, CRP 25.5, Uric acid 7.3, and Troponin 0.13. Right elbow, hand and knee xrays were done. ID, Ortho and Rheumatology were consulted. Gonorrhea/Chlamydia test, Lyme serology and HIV test ordered and were negative. Colchicine, Indomethacin and Prednisone were given. One dose of Vancomycin and Ceftriaxone were given. Fever and tachycardia resolved. Patient was discharged with instructions to take Allopurinol and continue Colchicine and to follow-up with Rheumatology as scheduled. Minutes to complete discharge: 45 Discharge Summary Reason For Visit: ARTICULAR GOUT Condition: Improved - Instructions Diet, Activity, Other Instructions: You were admitted because you had pain and swelling on multiple joints. You were diagnosed with acute gout flare. It is an arthritis where you have high levels of uric acid in your blood. You were given steroids and pain medications while you were here at the hospital. You will start taking a new medication that will lower your uric acid and prevent worsening of gout. Please take the medication as prescribed: Continue Indomethacin 50mg every 6 hours for 2 more days. Start taking Allopurinol 100mg once a day for 7 days after you complete colchicine Then take 200mg daily after you finish the 7 days. Drink plenty of fluids, avoid drinking alcohol, and maintain a healthy body weight. Follow-up with the [facility] (Dr. Retana). Please call his office at [phone] to schedule an appointment. Please follow-up with your primary care doctor within 1 week. Call 911 or go to the ED if with worsening symptoms or any new concerns noted. En Espanol: Usted vino al hospital por que tenia dolor y inflammacion en varias articulaciones. Usted fue diagnosticado con un ataque de la gota. Es un tipo de artritis donde tiene niveles alto del acido urico en la zunilda. A usted le dieron esteroides y medicina para el dolor mientras estuvo en el hospital. Usted va a empezar a ary nueva medicina que baja el nivel del acido urico para evitar el empeoramento de la gota. Por favor tome la medicina asi: Continue Indomethacin 50mg cada 6 horas por 2 richards mas. Empezando daniel lunes, tome Allopurinol 100mg luisito vez al ras por 7 richards. Despues de terminar esos 7 richards, tome Allopurinol 200mg luisito vez al ras por 7 richards. [place] suficiente liquidos, no tome alcohol, y mantenga un peso saludable. Siga con plasencia reumatologo (Dr. Retana). Por favor llame a plasencia oficina al para hacer luisito phil. Jose J luisito phil con plasencia doctor primario dentro de luisito semana. Llame al 91 o vaya al Departamento de Emergencias si radha sintomas empeoran o si tiene algunas nuevas preocupaciones. Referrals: Min Retana MD [Staff Physician] - Kerwin Silva MD [Staff Physician] - Disposition: HOME - Home Medications Comprehensive Discharge Medication List: Ambulatory Orders Amlodipine Besylate 10 mg PO DAILY #30 tablet 11/24/17 Cane 1 each ASDIR #1 each 11/24/17 Erythromycin 0.5% Eye Ointment [Erythromycin 0.5% Eye Ointment -] 1 applic OS DAILY #1 tube 11/24/17 Metformin HCl [Glucophage] 1,000 mg PO DAILY #30 tablet 11/24/17 Indomethacin [Indocin -] 50 mg PO QID #8 capsule 01/18/18 Allopurinol [Zyloprim -] 100 mg PO DAILY #53 tablet 01/19/18 Colchicine 0.6 mg PO DAILY #2 capsule 01/19/18 Indomethacin [Indocin -] 50 mg PO QID PRN #8 capsule 01/19/18 This patient is new to me today: Yes Date on this admission: 01/19/18 Emergency Visit: Yes ED Registration Date: 01/17/18 Care time: The patient presented to the Emergency Department on the above date and was hospitalized for further evaluation of their emergent condition. Critical Care patient: No - Discharge Referral Referred to [facility] Med P.C.: No
== END 2018-01-19 13:20 | disposition home or self-care (01) | DRG 351 ==
LOC: JER 17:02 → INTOOBSV 01-17 01:59 → JERBED 01-17 01:59 → UNDOADMOB 01-17 01:59 → JERBED 01-17 02:43 → J7W 01-17 09:23 → JERBED 01-17 09:23 → J7W 01-17 09:23 → UNDODISOB 01-19 13:20
PROVIDERS: ADMIT Internal Medicine; ATTEND Internal Medicine
PROC: 3E03329 Introduction of Other Anti-infective into Peripheral Vein, Percutaneous Approach (ICD-10-PCS; principal; 2018-01-17)
PROC: 3E0337Z Introduction of Electrolytic and Water Balance Substance into Peripheral Vein, Percutaneous Approach (ICD-10-PCS; 2018-01-17)
PROC: 3E013GC Introduction of Other Therapeutic Substance into Subcutaneous Tissue, Percutaneous Approach (ICD-10-PCS; 2018-01-17)
DX: M10.9 Gout, unspecified (principal); R65.10 Systemic inflammatory response syndrome (SIRS) of non-infectious origin without acute organ dysfunction; M13.89 Other specified arthritis, multiple sites; E11.9 Type 2 diabetes mellitus without complications; I10 Essential (primary) hypertension; E78.5 Hyperlipidemia, unspecified; D72.829 Elevated white blood cell count, unspecified; Z79.84 Long term (current) use of oral hypoglycemic drugs; R79.89 Other specified abnormal findings of blood chemistry; R00.0 Tachycardia, unspecified
CPT/HCPCS: 36415; 71045-TC-FY; 73070-TC-LT-FY; 73070-TC-RT-FY; 73110-TC-RT-FY; 73130-TC-RT-FY; 73560-TC-RT-FY; 80048; 80053; 81003; 81015; 82803; 82962; 83605; 83735; 84100; 84484; 84550; 85025; 85610; 85651; 85730; 86038; 86140; 86618; 87040; 87086; 87389; 93005; 93010; 96361; 96365; 96367; 96372; 97116-GP; 97161-GP; 99284-25; G0378; J1644; J7030